=== PATIENT | male | born 1950 | race Caucasian/White ===

== ENCOUNTER 2020-07-02 07:53 | Outpatient (CLI) | payer OTHER ==
[2020-07-02 14:43] LABS: ALBUMIN 4.6 g/dL (3.2-5.5); ALKALINE PHOSPHATASE 53 IU/L (42-121); ALT ALANINE AMINOTRANSFERASE < 10 IU/L (10-60); AST ASPARTATE AMINOTRANSFERASE 24 IU/L (10-42); BILIRUBIN,TOTAL 1.1 mg/dL (0.2-1.0); BUN - BLOOD UREA NITROGEN 23 mg/dL (6-20); CALCIUM 9.5 mg/dL (8.5-10.3); CARBON DIOXIDE - CO2 25 mmol/L (21-32); CHLORIDE 102 mmol/L (101-111); GFR - MDRD 74 (>89); GLUCOSE 170 mg/dL (70-100); POTASSIUM 4.5 mmol/L (3.5-5.0); SODIUM 137 mmol/L (135-145); TOTAL PROTEIN 7.6 g/dL (6.7-8.2)
[2020-07-02 14:44] LABS: ALBUMIN/GLOBULIN RATIO 1.5 (1.0-2.2)
[2020-07-02 14:49] LABS: BASOPHILS # (AUTO) 0.1 10^3/uL (0.0-0.1); BASOPHILS % (AUTO) 0.8 %; EOSINOPHILS # (AUTO) 0.3 10^3/uL (0.0-0.7); EOSINOPHILS % (AUTO) 4.5 %; HCT - HEMATOCRIT 46.2 % (42.0-52.0); HGB - HEMOGLOBIN 14.5 g/dL (14.0-18.0); LYMPHOCYTES % (AUTO) 16.1 %; MEAN CORPUSCULAR HEMOGLOBIN 31.3 pg (27.0-31.0); MEAN CORPUSCULAR HGB CONC 31.4 g/dL (32.0-36.0); MEAN CORPUSCULAR VOLUME 99.6 fL (80.0-94.0); MEAN PLATELET VOLUME 9.4 fL (7.4-11.4); MONOCYTES # (AUTO) 0.4 10^3/uL (0.0-1.0); MONOCYTES % (AUTO) 7.2 %; NEUTROPHILS # (AUTO) 4.2 10^3/uL (1.5-6.6); NEUTROPHILS % (AUTO) 71.1 %; PLT - PLATELET COUNT 263 10^3/uL (130-450); RED BLOOD COUNT 4.64 10^6/uL (4.70-6.10)
[2020-07-02 20:26] LABS: ESTIMATED AVERAGE GLUCOSE 140 mg/dL (70-100); HEMOGLOBIN A1c% 6.5 % (4.27-6.07)
== END 2020-07-02 07:54 | disposition home or self-care (01) ==
LOC: LAB.S 07:53
PROVIDERS: ATTEND Internal Medicine
DX: Z00.00 Encounter for general adult medical examination without abnormal findings (principal); Z12.5 Encounter for screening for malignant neoplasm of prostate; E11.9 Type 2 diabetes mellitus without complications
CPT/HCPCS: 36415; 80053; 83036; 84153; 85025

== ENCOUNTER 2020-10-06 07:32 | Outpatient (CLI) | payer OTHER ==
[2020-10-06 14:25] LABS: BASOPHILS % (AUTO) 0.5 %; EOSINOPHILS # (AUTO) 0.6 10^3/uL (0.0-0.7); EOSINOPHILS % (AUTO) 8.5 %; HCT - HEMATOCRIT 46.3 % (42.0-52.0); HGB - HEMOGLOBIN 14.8 g/dL (14.0-18.0); LYMPHOCYTES # (AUTO) 1.1 10^3/uL (1.5-3.5); LYMPHOCYTES % (AUTO) 16.5 %; MEAN CORPUSCULAR HEMOGLOBIN 31.6 pg (27.0-31.0); MEAN CORPUSCULAR VOLUME 98.7 fL (80.0-94.0); MEAN PLATELET VOLUME 9.4 fL (7.4-11.4); MONOCYTES # (AUTO) 0.5 10^3/uL (0.0-1.0); MONOCYTES % (AUTO) 8.3 %; NEUTROPHILS # (AUTO) 4.3 10^3/uL (1.5-6.6); NEUTROPHILS % (AUTO) 65.9 %; PLT - PLATELET COUNT 245 10^3/uL (130-450); RED BLOOD COUNT 4.69 10^6/uL (4.70-6.10); RED CELL DISTRIBUTION WIDTH 12.4 % (12.0-15.0); WHITE BLOOD COUNT 6.5 x10^3/uL (4.8-10.8)
[2020-10-06 14:35] LABS: ESTIMATED AVERAGE GLUCOSE 146 mg/dL (70-100); HEMOGLOBIN A1c% 6.7 % (4.27-6.07)
[2020-10-06 14:53] LABS: ALBUMIN 4.5 g/dL (3.2-5.5); ALBUMIN/GLOBULIN RATIO 1.6 (1.0-2.2); ALKALINE PHOSPHATASE 59 IU/L (42-121); ALT ALANINE AMINOTRANSFERASE 21 IU/L (10-60); AST ASPARTATE AMINOTRANSFERASE 23 IU/L (10-42); BILIRUBIN,TOTAL 0.8 mg/dL (0.2-1.0); BUN - BLOOD UREA NITROGEN 24 mg/dL (6-20); CALCIUM 9.6 mg/dL (8.5-10.3); CARBON DIOXIDE - CO2 28 mmol/L (21-32); CHLORIDE 103 mmol/L (101-111); CHOL/HDL RATIO 3.8 (<5.0); CHOLESTEROL 123 mg/dL; CREATININE 1.1 mg/dL (0.6-1.2); GFR - MDRD 67 (>89); GLUCOSE 147 mg/dL (70-100); HDL CHOLESTEROL 32 mg/dL; LDL CHOLESTEROL,CALCULATED 68 mg/dL; LDL/HDL RATIO 2.1 (<3.6); POTASSIUM 4.7 mmol/L (3.5-5.0); SODIUM 141 mmol/L (135-145); TOTAL PROTEIN 7.3 g/dL (6.7-8.2); TRIGLYCERIDES 115 mg/dL; VLDL CHOLESTEROL 23 mg/dL
[2020-10-06 15:09] LABS: CREATININE,URINE 102.1 mg/dL; MICROALBUM/CREATININE RATIO,UR 2.9 ug/mg (<30.0); MICROALBUMIN,URINE 0.3 mg/dL (0-300.0)
== END 2020-10-06 07:33 | disposition home or self-care (01) ==
LOC: LAB.S 07:32
PROVIDERS: ATTEND Internal Medicine
DX: E11.9 Type 2 diabetes mellitus without complications (principal)
CPT/HCPCS: 36415; 80053; 80061; 82043; 82570; 83036; 83721; 85025

== ENCOUNTER 2020-11-25 07:30 | Outpatient (CLI) | payer OTHER ==
[2020-11-25 15:01] LABS: INR 1.1 (0.8-1.2)
[2020-11-25 15:09] LABS: PARTIAL THROMBOPLASTIN TIME 29.6 secs (24.9-33.3)
[2020-11-25 15:10] LABS: BASOPHILS % (AUTO) 0.6 %; EOSINOPHILS # (AUTO) 0.3 10^3/uL (0.0-0.7); EOSINOPHILS % (AUTO) 5.2 %; HCT - HEMATOCRIT 46.2 % (42.0-52.0); HGB - HEMOGLOBIN 14.8 g/dL (14.0-18.0); LYMPHOCYTES # (AUTO) 0.9 10^3/uL (1.5-3.5); LYMPHOCYTES % (AUTO) 17.4 %; MEAN CORPUSCULAR HEMOGLOBIN 31.6 pg (27.0-31.0); MEAN CORPUSCULAR VOLUME 98.5 fL (80.0-94.0); MEAN PLATELET VOLUME 9.3 fL (7.4-11.4); MONOCYTES # (AUTO) 0.5 10^3/uL (0.0-1.0); MONOCYTES % (AUTO) 9.9 %; NEUTROPHILS # (AUTO) 3.6 10^3/uL (1.5-6.6); NEUTROPHILS % (AUTO) 66.5 %; PLT - PLATELET COUNT 246 10^3/uL (130-450); RED BLOOD COUNT 4.69 10^6/uL (4.70-6.10); RED CELL DISTRIBUTION WIDTH 12.9 % (12.0-15.0); WHITE BLOOD COUNT 5.4 x10^3/uL (4.8-10.8)
[2020-11-25 15:18] LABS: BILIRUBIN,URINE NEGATIVE (NEGATIVE); GLUCOSE, URINE (UA) NEGATIVE (NEGATIVE); KETONES,URINE (UA) NEGATIVE (NEGATIVE); LEUKOCYTE ESTERASE, URINE NEGATIVE (NEGATIVE); NITRITE,URINE NEGATIVE (NEGATIVE); OCCULT BLOOD,URINE NEGATIVE (NEGATIVE); PROTEIN,URINE NEGATIVE (NEGATIVE); UROBILINOGEN,URINE 0.2 (NORMAL) E.U./dL (NORMAL)
[2020-11-25 15:20] LABS: CLARITY,URINE CLEAR (CLEAR)
[2020-11-25 15:28] LABS: BACTERIA,URINE Rare /HPF (None Seen); RBC,URINE 0-5 /HPF (0-5); SQUAMOUS EPITHELIAL CELL,UR RARE Squamous (<= Few); WBC,URINE 0-3 /HPF (0-3)
[2020-11-25 15:43] LABS: THYROID STIMULATING HORMONE 2.4 uIU/mL (0.34-5.60)
[2020-11-25 15:50] LABS: ALBUMIN 4.3 g/dL (3.2-5.5); ALBUMIN/GLOBULIN RATIO 1.5 (1.0-2.2); ALKALINE PHOSPHATASE 58 IU/L (42-121); ALT ALANINE AMINOTRANSFERASE < 10 IU/L (10-60); AST ASPARTATE AMINOTRANSFERASE 24 IU/L (10-42); BILIRUBIN,TOTAL 0.8 mg/dL (0.2-1.0); BUN - BLOOD UREA NITROGEN 20 mg/dL (6-20); CALCIUM 9.5 mg/dL (8.5-10.3); CARBON DIOXIDE - CO2 28 mmol/L (21-32); CHLORIDE 102 mmol/L (101-111); CHOL/HDL RATIO 5.6 (<5.0); CHOLESTEROL 178 mg/dL; CREATININE 1.1 mg/dL (0.6-1.2); GFR - MDRD 66 (>89); GLUCOSE 183 mg/dL (70-100); HDL CHOLESTEROL 32 mg/dL; LDL CHOLESTEROL,CALCULATED 112 mg/dL; LDL/HDL RATIO 3.5 (<3.6); POTASSIUM 4.3 mmol/L (3.5-5.0); SODIUM 139 mmol/L (135-145); TOTAL PROTEIN 7.1 g/dL (6.7-8.2); TRIGLYCERIDES 168 mg/dL; VLDL CHOLESTEROL 34 mg/dL
== END 2020-11-25 07:31 | disposition home or self-care (01) ==
LOC: LAB.S 07:30
PROVIDERS: ATTEND Registered Nurse
DX: Z01.812 Encounter for preprocedural laboratory examination (principal)
CPT/HCPCS: 36415; 80053; 80061; 81001; 83721; 84443; 85025; 85610; 85730

== ENCOUNTER 2020-11-30 15:59 | Outpatient (CLI) | payer OTHER | END 2020-11-30 16:00 | disposition home or self-care (01) | LOC: COV 15:59 | PROVIDERS: ATTEND Student in an Organized Health Care Education/Training Program | DX: Z01.812 Encounter for preprocedural laboratory examination (principal); M48.062 Spinal stenosis, lumbar region with neurogenic claudication; M54.16 Radiculopathy, lumbar region; Z20.822 Contact with and (suspected) exposure to COVID-19 ==

== ENCOUNTER 2021-08-12 07:37 | Outpatient (CLI) | payer OTHER ==
[2021-08-12 14:31] LABS: ALBUMIN 4.9 g/dL (3.2-5.5); ALBUMIN/GLOBULIN RATIO 1.4 (1.0-2.2); ALKALINE PHOSPHATASE 59 IU/L (42-121); ALT ALANINE AMINOTRANSFERASE < 10 IU/L (10-60); AST ASPARTATE AMINOTRANSFERASE 21 IU/L (10-42); BILIRUBIN,TOTAL 1.2 mg/dL (0.2-1.0); BUN - BLOOD UREA NITROGEN 30 mg/dL (6-20); CALCIUM 10.1 mg/dL (8.5-10.3); CARBON DIOXIDE - CO2 28 mmol/L (21-32); CHLORIDE 100 mmol/L (101-111); CREATININE 1.1 mg/dL (0.6-1.2); GFR - MDRD 66 (>89); GLUCOSE 135 mg/dL (70-100); POTASSIUM 4.7 mmol/L (3.5-5.0); SODIUM 137 mmol/L (135-145); TOTAL PROTEIN 8.3 g/dL (6.7-8.2)
[2021-08-12 15:33] LABS: CREATININE,URINE 136.3 mg/dL; MICROALBUM/CREATININE RATIO,UR 4.4 ug/mg (<30.0); MICROALBUMIN,URINE 0.6 mg/dL (0-300.0)
[2021-08-12 20:19] LABS: ESTIMATED AVERAGE GLUCOSE 146 mg/dL (70-100); HEMOGLOBIN A1c% 6.7 % (4.27-6.07)
== END 2021-08-12 07:38 | disposition home or self-care (01) ==
LOC: LAB.S 07:37
PROVIDERS: ATTEND Registered Nurse
DX: E11.9 Type 2 diabetes mellitus without complications (principal)
CPT/HCPCS: 36415; 80053; 82043; 82570; 83036

== ENCOUNTER 2021-12-02 07:52 | Outpatient (CLI) | payer OTHER | END 2021-12-02 07:53 | disposition critical access hospital (66) | LOC: EMS 07:52 | DX: R44.0 Auditory hallucinations (principal); R44.1 Visual hallucinations | CPT/HCPCS: A0425; A0429 ==

== ENCOUNTER 2021-12-02 08:32 | Emergency (ER) | payer OTHER ==
[2021-12-02 08:42] VITALS: BP 121/78
[2021-12-02 09:08] LABS: BASOPHILS % (AUTO) 0.3 %; EOSINOPHILS # (AUTO) 0.2 10^3/uL (0.0-0.7); EOSINOPHILS % (AUTO) 2.4 %; HCT - HEMATOCRIT 42.7 % (42.0-52.0); LYMPHOCYTES % (AUTO) 15.9 %; MEAN CORPUSCULAR HEMOGLOBIN 31.9 pg (27.0-31.0); MEAN CORPUSCULAR HGB CONC 32.8 g/dL (32.0-36.0); MEAN CORPUSCULAR VOLUME 97.3 fL (80.0-94.0); MEAN PLATELET VOLUME 8.7 fL (7.4-11.4); MONOCYTES # (AUTO) 0.6 10^3/uL (0.0-1.0); MONOCYTES % (AUTO) 8.8 %; NEUTROPHILS # (AUTO) 4.6 10^3/uL (1.5-6.6); NEUTROPHILS % (AUTO) 72.3 %; PLT - PLATELET COUNT 220 10^3/uL (130-450); RED BLOOD COUNT 4.39 10^6/uL (4.70-6.10); RED CELL DISTRIBUTION WIDTH 12.6 % (12.0-15.0); WHITE BLOOD COUNT 6.3 x10^3/uL (4.8-10.8)
[2021-12-02 09:21] LABS: ALBUMIN 4.2 g/dL (3.2-5.5); ALBUMIN/GLOBULIN RATIO 1.6 (1.0-2.2); ALKALINE PHOSPHATASE 50 IU/L (42-121); ALT ALANINE AMINOTRANSFERASE < 10 IU/L (10-60); AST ASPARTATE AMINOTRANSFERASE 20 IU/L (10-42); BILIRUBIN,TOTAL 0.6 mg/dL (0.2-1.0); BUN - BLOOD UREA NITROGEN 22 mg/dL (6-20); CALCIUM 9.4 mg/dL (8.5-10.3); CARBON DIOXIDE - CO2 25 mmol/L (21-32); CHLORIDE 102 mmol/L (101-111); CREATININE 0.9 mg/dL (0.6-1.2); ETOH - ETHANOL < 5.0 mg/dL; GFR - MDRD 83 (>89); GLUCOSE 131 mg/dL (70-100); LIPASE 30 U/L (22-51); POTASSIUM 4.3 mmol/L (3.5-5.0); SODIUM 137 mmol/L (135-145); TOTAL PROTEIN 6.9 g/dL (6.7-8.2)
[2021-12-02] MEDS ORDERED: SODIUM CHLORIDE 0.9% 1,000 ML IV STA (09:34)
[2021-12-02] MEDS ORDERED: KETOROLAC 30 MG/ML VIAL IVP STA (09:34)
[2021-12-02] MEDS ORDERED: DEXAMETHASONE 10 MG/ML VIAL IVP STA (09:34)
[2021-12-02 10:15] LABS: MUDS CUTOFF CONCENTRATIONS CUTOFF CONC BELOW:
[2021-12-02 10:17] LABS: BILIRUBIN,URINE NEGATIVE (NEGATIVE); GLUCOSE, URINE (UA) NEGATIVE (NEGATIVE); KETONES,URINE (UA) TRACE mg/dL (NEGATIVE); LEUKOCYTE ESTERASE, URINE NEGATIVE (NEGATIVE); NITRITE,URINE NEGATIVE (NEGATIVE); OCCULT BLOOD,URINE NEGATIVE (NEGATIVE); PROTEIN,URINE NEGATIVE (NEGATIVE); UROBILINOGEN,URINE 0.2 (NORMAL) E.U./dL (NORMAL)
[2021-12-02 10:25] LABS: CLARITY,URINE CLEAR (CLEAR)
[2021-12-02 10:33] LABS: AMPHETAMINE SCREEN,URINE NEGATIVE (NEGATIVE); BARBITURATE SCREEN,UR NEGATIVE (NEGATIVE); BENZODIAZEPINES SCREEN, URINE NEGATIVE (NEGATIVE); COCAINE SCREEN URINE NEGATIVE (NEGATIVE); METHADONE SCREEN, URINE NEGATIVE (NEGATIVE); METHAMPHETAMINES SCREEN, URINE NEGATIVE (NEGATIVE); OPIATE SCREEN, URINE NEGATIVE (NEGATIVE); OXYCODONE SCREEN, URINE NEGATIVE (NEGATIVE); PROPOXYPHENE SCREEN, URINE NEGATIVE (NEGATIVE); THC CANNABINOID SCREEN, URINE NEGATIVE (NEGATIVE); TRICYCLIC ANTIDEPRESSANT,URINE NEGATIVE (NEGATIVE)
--- NOTE | 2021-12-02 12:07 | ED Physician Documentation ---
History of Present Illness - Stated complaint Stated Complaint: MHE - Chief complaint Chief Complaint: MHE - History obtained from History obtained from: Patient, Family () - History of Present Illness Timing: Today Review of Systems Constitutional: denies: Fever Ears: denies: Ear pain Nose: denies: Congestion Throat: denies: Sore throat Cardiac: denies: Chest pain / pressure, Palpitations Respiratory: denies: Dyspnea, Cough GI: reports: Nausea. denies: Abdominal Pain, Vomiting : denies: Dysuria, Frequency Skin: denies: Rash Musculoskeletal: reports: Extremity pain, Other (spasming of the legs and back). denies: Neck pain, Back pain, Extremity swelling Neurologic: reports: Altered mental status (seening things.). denies: Generalized weakness, Focal weakness, Numbness Psychiatric: reports: Hallucinations. denies: Depressed, Suicidal, Homicidal PD PAST MEDICAL HISTORY - Past Medical History Past Medical History: Yes Cardiovascular: Hypertension, High cholesterol Respiratory: None Neuro: Parkinson's, Peripheral neuropathy Endocrine/Autoimmune: Type 2 diabetes GI: None : None Psych: None Musculoskeletal: None Derm: None - Past Surgical History Past Surgical History: No - Present Medications Home Medications: Ambulatory Orders Medication Instructions Recorded Confirmed Carbidopa/Levodopa [Carbidopa-Levo DAILY PM 09/25/19 ER 25-100 Tab] Carbidopa/Levodopa/Entacapone 1 each PO Q6HR 09/25/19 09/25/19 [Carbidopa-Levodopa 100 mg-Enta] Ibuprofen [Motrin] 600 mg PO Q6H PRN #30 tab 09/25/19 Selegiline HCl 5 mg PO BID 09/25/19 09/25/19 Simvastatin 09/25/19 09/25/19 lisinopriL [Prinivil] 10 mg PO 09/25/19 metFORMIN [Glucophage] 09/25/19 Gabapentin 100 mg PO QPM #20 capsule 10/01/19 Lidocaine Patch 5% [Lidoderm Patch] 1 patch TOP DAILY PRN #10 patch 10/01/19 oxyCODONE [Roxicodone] 5 mg PO Q8H PRN #20 tablet 10/01/19 - Allergies Allergies/Adverse Reactions: Allergies Allergy/AdvReac Type Severity Reaction Status Date / Time Penicillins Allergy Unknown Verified 09/25/19 12:24 - Social History Does the pt smoke?: No Smoking Status: Never smoker Does the pt drink ETOH?: No Does the pt have substance abuse?: No - Immunizations Immunizations are current?: Yes - POLST Patient has POLST: No PD ED PE NORMAL - Vitals Vital signs reviewed: Yes - General General: No acute distress, Well developed/nourished, Other (The patient is alert but has a 2 to 3-second delay in execution of motor commands and a 2- second speech latency.) - HEENT HEENT: Atraumatic, PERRL, EOMI - Neck Neck: Supple, no meningeal sign, No bony TTP - Cardiac Cardiac: RRR, No murmur - Respiratory Respiratory: No respiratory distress, Clear bilaterally - Abdomen Abdomen: Soft, Non tender - Back Back: No CVA TTP, No spinal TTP - Derm Derm: Normal color, Warm and dry, No rash - Extremities Extremities: No deformity, No edema - Neuro Neuro: oval or circular glass cutter 2-12 intact, No motor deficit, No sensory deficit, Other (speech latency present) Eye Opening: Spontaneous Motor: Obeys Commands Verbal: Oriented GCS Score: 15 - Psych Psych: Normal mood, Normal affect Results - Vitals Vitals: Vital Signs - 24 hr 12/02/21 08:39 Temperature 36.6 C Heart Rate 94 Respiratory 16 Rate Blood Pressure 121/78 O2 Saturation 94 Oxygen O2 Source Room air - Labs Labs: Laboratory Tests 12/02/21 12/02/21 12/02/21 09:00 09:00 09:00 WBC 6.3 RBC 4.39 L Hgb 14.0 Hct 42.7 MCV 97.3 H MCH 31.9 H MCHC 32.8 RDW 12.6 Plt Count 220 MPV 8.7 Neut # (Auto) 4.6 Lymph # (Auto) 1.0 L Nicholas # (Auto) 0.6 Eos # (Auto) 0.2 Baso # (Auto) 0.0 Absolute Nucleated RBC 0.00 Nucleated RBC % 0.0 Sodium 137 Potassium 4.3 Chloride 102 Carbon Dioxide 25 Anion Gap 10.0 BUN 22 H Creatinine 0.9 Estimated GFR (MDRD) 83 L Glucose 131 H Calcium 9.4 Total Bilirubin 0.6 AST 20 ALT < 10 L Alkaline Phosphatase 50 Total Protein 6.9 Albumin 4.2 Globulin 2.7 Albumin/Globulin Ratio 1.6 Lipase 30 TSH 1.83 Urine Color Urine Clarity Urine pH Ur Specific [place] Urine Protein Urine Glucose (UA) Urine Ketones Urine Occult Blood Urine Nitrite Urine Bilirubin Urine Urobilinogen Ur Leukocyte Esterase Ur Microscopic Review Urine Culture Comments Urine Opiates Screen Ur Oxycodone Screen Urine Methadone Screen Ur Propoxyphene Screen Ur Barbiturates Screen Ur Tricyclics Screen Ur Phencyclidine Scrn Ur Amphetamine Screen U Methamphetamines Scrn U Benzodiazepines Scrn Urine Cocaine Screen U Cannabinoids Screen Ethyl Alcohol < 5.0 12/02/21 10:08 WBC RBC Hgb Hct MCV MCH MCHC RDW Plt Count MPV Neut # (Auto) Lymph # (Auto) Nicholas # (Auto) Eos # (Auto) Baso # (Auto) Absolute Nucleated RBC Nucleated RBC % Sodium Potassium Chloride Carbon Dioxide Anion Gap BUN Creatinine Estimated GFR (MDRD) Glucose Calcium Total Bilirubin AST ALT Alkaline Phosphatase Total Protein Albumin Globulin Albumin/Globulin Ratio Lipase TSH Urine Color YELLOW Urine Clarity CLEAR Urine pH 7.0 Ur Specific [place] 1.015 Urine Protein NEGATIVE Urine Glucose (UA) NEGATIVE Urine Ketones TRACE Urine Occult Blood NEGATIVE Urine Nitrite NEGATIVE Urine Bilirubin NEGATIVE Urine Urobilinogen 0.2 (NORMAL) Ur Leukocyte Esterase NEGATIVE Ur Microscopic Review NOT INDICATED Urine Culture Comments NOT INDICATED Urine Opiates Screen NEGATIVE Ur Oxycodone Screen NEGATIVE Urine Methadone Screen NEGATIVE Ur Propoxyphene Screen NEGATIVE Ur Barbiturates Screen NEGATIVE Ur Tricyclics Screen NEGATIVE Ur Phencyclidine Scrn NEGATIVE Ur Amphetamine Screen NEGATIVE U Methamphetamines Scrn NEGATIVE U Benzodiazepines Scrn NEGATIVE Urine Cocaine Screen NEGATIVE U Cannabinoids Screen NEGATIVE Ethyl Alcohol Procedures - IVC sono (time) 09 Bedside IVC sono: IVC measures (cm) (0.74), IVC collapsed c insp (cm) (complete), Significant dehydration (est 2-3 liter deficit) PD MEDICAL DECISION MAKING - ED course Complexity details: reviewed old records, reviewed results, re-evaluated patient, considered differential, d/w patient, d/w family () ED course: 71-year-old male with a history of Parkinson's and early dementia has developed hallucinations which he has had previously periodically. Today he is asked for mental health evaluation for his hallucinations. He called the ambulance when his was not home. He had significant problems with spasms in his legs and back and radiation of the pain down his right side consistent with a sciatica he has had previously. Here in the emergency department we started hydration and the patient began to feel improved. We did treat the sciatica as well with dexamethasone and Toradol. At the conclusion of treatment the patient's hallucinations were not present. I did discuss with the the potential for evaluation with telepsych and the likelihood that this is related to his Parkinson's medication and the recent illness and this would likely improve. She declined telepsych evaluation this morning. Departure - Departure Disposition: 01 Home, Self Care Clinical Impression: Low back pain of thoracolumbar region with sciatica, Dehydration Condition: Stable Instructions: ED Dehydration, ED Sciatica Follow-Up: Lisbeth Alvarez ARNP [Primary Care Provider] - MARCIANO RALPH MD [Physician No Access] - Comments: Rajinder, today it looks like you are sciatica has been treated successfully and we did find that you are significantly dehydrated. I suspect this is contributed to the increase in hallucinations you have had and the hallucinations are likely related to your Parkinson's medication. If you continue to have significant problems with your hallucinations a visit to Dr. Ralph is indicated. The recommendation for fluid intake is 2 quarts per day. Discharge Date/Time: 12/02/21 13:10
== END 2021-12-02 13:10 | disposition home or self-care (01) ==
LOC: EDUNIT# → ED 08:32
DX: G20 Parkinson's disease (principal); M54.40 Lumbago with sciatica, unspecified side; E86.0 Dehydration; R44.1 Visual hallucinations; E11.42 Type 2 diabetes mellitus with diabetic polyneuropathy; Z79.84 Long term (current) use of oral hypoglycemic drugs; I10 Essential (primary) hypertension
CPT/HCPCS: 36415; 80053; 80306; 80320; 81001; 81003; 83690; 84443; 85025; 87086; 96374; 96375; 99284

== ENCOUNTER → 2022-01-31 | Outpatient (CLI) | payer OTHER | END | disposition EMS.NT | LOC: EMS 12:19 | DX: Z03.89 Encounter for observation for other suspected diseases and conditions ruled out (principal) ==

== ENCOUNTER 2022-02-01 12:28 | Emergency (ER) | payer OTHER ==
[2022-02-01 13:03] LABS: BASOPHILS % (AUTO) 0.4 %; EOSINOPHILS # (AUTO) 0.3 10^3/uL (0.0-0.7); EOSINOPHILS % (AUTO) 3.3 %; HCT - HEMATOCRIT 45.5 % (42.0-52.0); HGB - HEMOGLOBIN 14.9 g/dL (14.0-18.0); LYMPHOCYTES # (AUTO) 0.9 10^3/uL (1.5-3.5); LYMPHOCYTES % (AUTO) 11.6 %; MEAN CORPUSCULAR HEMOGLOBIN 31.9 pg (27.0-31.0); MEAN CORPUSCULAR HGB CONC 32.7 g/dL (32.0-36.0); MEAN CORPUSCULAR VOLUME 97.4 fL (80.0-94.0); MEAN PLATELET VOLUME 8.6 fL (7.4-11.4); MONOCYTES # (AUTO) 0.6 10^3/uL (0.0-1.0); MONOCYTES % (AUTO) 6.9 %; NEUTROPHILS # (AUTO) 6.3 10^3/uL (1.5-6.6); NEUTROPHILS % (AUTO) 77.4 %; PLT - PLATELET COUNT 253 10^3/uL (130-450); RED BLOOD COUNT 4.67 10^6/uL (4.70-6.10); RED CELL DISTRIBUTION WIDTH 12.5 % (12.0-15.0); WHITE BLOOD COUNT 8.1 x10^3/uL (4.8-10.8)
[2022-02-01 13:25] LABS: ACETAMINOPHEN < 10 ug/mL (10-30); ALBUMIN 4.2 g/dL (3.2-5.5); ALBUMIN/GLOBULIN RATIO 1.6 (1.0-2.2); ALKALINE PHOSPHATASE 55 IU/L (42-121); ALT ALANINE AMINOTRANSFERASE < 10 IU/L (10-60); AST ASPARTATE AMINOTRANSFERASE 18 IU/L (10-42); BUN - BLOOD UREA NITROGEN 22 mg/dL (6-20); CALCIUM 9.3 mg/dL (8.5-10.3); CARBON DIOXIDE - CO2 25 mmol/L (21-32); CHLORIDE 98 mmol/L (101-111); CREATININE 0.8 mg/dL (0.6-1.2); ETOH - ETHANOL < 5.0 mg/dL; GFR - MDRD 96 (>89); GLUCOSE 159 mg/dL (70-100); LIPASE 28 U/L (22-51); POTASSIUM 4.1 mmol/L (3.5-5.0); SALICYLATE < 6.0 mg/dL; SODIUM 133 mmol/L (135-145); TOTAL PROTEIN 6.9 g/dL (6.7-8.2)
[2022-02-01] MEDS ORDERED: CARBIDOPA/LEVODOPA 25 MG/100 MG TABLET PO SCH (14:00)
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
[2022-02-01 14:16] LABS: B. PARAPERTUSSIS- RESP PCR PAN NOT DETECTED; B. PERTUSSIS- RESP PCR PANEL NOT DETECTED; C. PNEUMONIAE- RESP PCR PANEL NOT DETECTED; CORONAVIRUS 229E-RESP PCR NOT DETECTED; CORONAVIRUS HKU1-RESP PCR NOT DETECTED; CORONAVIRUS NL63-RESP PCR NOT DETECTED; CORONAVIRUS OC43-RESP PCR NOT DETECTED; HUMAN METAPNEUMOVIRUS NOT DETECTED; INFLUENZA A- RESP PCR PANEL NOT DETECTED; INFLUENZA B - RESP PCR PANEL NOT DETECTED; M. PNEUMONIAE- RESP PCR PANEL NOT DETECTED; PARAINFLUENZA VIRUS 1 NOT DETECTED; PARAINFLUENZA VIRUS 2 NOT DETECTED; PARAINFLUENZA VIRUS 3 NOT DETECTED; PARAINFLUENZA VIRUS 4 NOT DETECTED; RHINOVIRUS/ENTEROVIRUS NOT DETECTED; RSV- RESP PCR PANEL NOT DETECTED; SARS-CoV-2 -RESP PCR PANEL NOT DETECTED
[2022-02-01 15:01] LABS: MUDS CUTOFF CONCENTRATIONS CUTOFF CONC BELOW:
[2022-02-01 15:12] LABS: BILIRUBIN,URINE NEGATIVE (NEGATIVE); GLUCOSE, URINE (UA) NEGATIVE (NEGATIVE); KETONES,URINE (UA) TRACE mg/dL (NEGATIVE); LEUKOCYTE ESTERASE, URINE NEGATIVE (NEGATIVE); NITRITE,URINE NEGATIVE (NEGATIVE); OCCULT BLOOD,URINE NEGATIVE (NEGATIVE); PROTEIN,URINE NEGATIVE (NEGATIVE); UROBILINOGEN,URINE 0.2 (NORMAL) E.U./dL (NORMAL)
[2022-02-01 15:16] LABS: CLARITY,URINE CLEAR (CLEAR)
[2022-02-01 15:28] LABS: AMPHETAMINE SCREEN,URINE NEGATIVE (NEGATIVE); BARBITURATE SCREEN,UR NEGATIVE (NEGATIVE); BENZODIAZEPINES SCREEN, URINE NEGATIVE (NEGATIVE); COCAINE SCREEN URINE NEGATIVE (NEGATIVE); METHADONE SCREEN, URINE NEGATIVE (NEGATIVE); METHAMPHETAMINES SCREEN, URINE NEGATIVE (NEGATIVE); OPIATE SCREEN, URINE NEGATIVE (NEGATIVE); OXYCODONE SCREEN, URINE NEGATIVE (NEGATIVE); PROPOXYPHENE SCREEN, URINE NEGATIVE (NEGATIVE); THC CANNABINOID SCREEN, URINE NEGATIVE (NEGATIVE); TRICYCLIC ANTIDEPRESSANT,URINE NEGATIVE (NEGATIVE)
--- NOTE | 2022-02-01 15:37 | XRAY Report ---
PROCEDURE: Chest 1 View X-Ray INDICATIONS: weak TECHNIQUE: One view of the chest was acquired. COMPARISON: Same day right shoulder radiograph. FINDINGS: Suboptimal examination. Suspect density external to the patient at the left chest wall. Surgical changes and devices: None. Lungs and pleura: No pleural effusions or pneumothorax. Lungs are clear. Mediastinum: Mediastinal contours appear normal. Heart size is normal. Bones and chest wall: No suspicious bony lesions. Overlying soft tissues appear unremarkable. IMPRESSION: Limited examination due to positioning and possible external object at the left chest. Density at the left chest. This could represent an external object. It is difficult to exclude underl rossana airspace opacity. When clinically feasible, repeat or 2 view chest radiograph would be helpful for further evaluation. CT of the chest could also be considered for further evaluation. Reviewed by: Martinez Quiñones MD on 02/01/2022 3:35 PM [facility] Approved by: Martinez Quiñones MD on 02/01/2022 3:35 PM [facility] Station ID: [id number]
--- NOTE | 2022-02-01 15:38 | XRAY Report ---
PROCEDURE: Shoulder 3 View RT INDICATIONS: fall/pain TECHNIQUE: 3 views of the shoulder were acquired. COMPARISON: Same day CXR. FINDINGS: Bones: No fractures or dislocations. Moderate degenerative change at the right shoulder. No suspici ous bony lesions. Visualized ribs appear intact. Soft tissues: No suspicious soft tissue calcifications. IMPRESSION: Moderate right shoulder DJD. Reviewed by: Martinez Quiñones MD on 02/01/2022 3:37 PM PST Approved by: Martinez Quiñones MD on 02/01/2022 3:37 PM PST Station ID: [id number]
--- NOTE | 2022-02-01 15:42 | CT Report ---
PROCEDURE: HEAD WO INDICATIONS: fall TECHNIQUE: Noncontrast 4.5 mm thick angled axial sections acquired from the foramen magnum to the vertex. For r adiation dose reduction, the following was used: automated exposure control, adjustment of mA and/or kV according to patient size. COMPARISON: None. FINDINGS: Image quality: Excellent. Repeat image acquisition. CSF spaces: Basal cisterns are patent. No extra-axial fluid collections. Ventricles are normal in size and shape. Brain: No midline shift. No intracranial masses or hemorrhage. Cartwright-white matter interface is norm al. Skull and face: Calvarium and visualized facial bones are intact, without suspicious lesions. Sinuses: Visualized sinuses and mastoids are clear. IMPRESSION: No acute intracranial abnormality. Reviewed by: Martinez Quiñones MD on 02/01/2022 3:40 PM [facility] Approved by: Martinez Quiñones MD on 02/01/2022 3:40 PM [facility] Station ID: [id number]
[2022-02-01] MEDS: CARBIDOPA/LEVODOPA 10 MG/100 MG TABLET PO SCH ×2 (16:50→19:51)
[2022-02-01] MEDS: CARBIDOPA/LEVODOPA 25 MG/100 MG TABLET PO SCH ×2 (18:29→22:30)
[2022-02-01] MEDS: metFORMIN 500 MG TABLET PO SCH (22:30)
[2022-02-01] MEDS ORDERED: MORPHINE 2 MG/ML CARPUJECT IVP STA (23:13)
[2022-02-01] MEDS ORDERED: KETOROLAC 15 MG/ML VIAL IM STA (23:17)
[2022-02-02] MEDS: CARBIDOPA/LEVODOPA 25 MG/100 MG TABLET PO SCH ×6 (01:53→23:20)
[2022-02-02] MEDS: CARBIDOPA/LEVODOPA 10 MG/100 MG TABLET PO SCH ×6 (04:27→23:20)
--- NOTE | 2022-02-02 07:22 | ED Physician Documentation ---
ED Addendum - Addendum Addendum: 02/02/22 07:21 DIANE. Patient endorsed to incoming daytime ED MD at 7am shift change.
[2022-02-02] MEDS: metFORMIN 500 MG TABLET PO SCH ×2 (09:12→23:20)
--- NOTE | 2022-02-02 10:07 | ED Physician Documentation ---
ED Addendum - Addendum Addendum: 02/02/22 10:06 No reported behavioral abnormalities overnight by nursing staff. He apparently rested reasonably well. He is on his usual daily medicines. Basic labs were okay. Verbal report on signout was telepsych consult has been ordered. I reviewed the orders and there is the phone consult order but not the telepsych set up order. I wonder if it may be did not get called in. Our TACK WELDER today will check into it. Hopefully just oversight on it and we can get this done later this morning. Social work will contact his . Most commonly we are able to add in some medications to help with behavioral aspects as long as there is no other illness or medical condition provoking it and the patient's do fairly well.
--- NOTE | 2022-02-02 13:42 | ED Physician Documentation ---
ED Addendum - Addendum Addendum: 02/02/22 13:39 There was some misdirection of the telepsych report. Apparently was not entered by psychiatry into [employer] last night. Without it had not been done as yet. However through the morning today we did contact the abdomen found that it had been done and they faxed the report to us. The report does outline the patient's condition. The median just of the therapy was to be supportive. The pharmacologic recommendation portion is actually left blank unfortunately. It had been done last evening and so the provider would not be available at this time. Social work talked with the patient's . He has been doing okay here without any agitation. The seemed reluctant to bring him home but understanding that placement is a longer-term issue. They had been looking into getting him into a dementia unit. They will continue that pursuit. At this point I can offer the patient and his a low-dose medication. I would choose one commonly used in other patients we have seen of similar condition. I would try Seroquel 25 mg at night daily to begin with and see how that does. This is typically preferable over low-dose haloperidol though might be able to be used in conjunction if need be. They follow-up with their primary care to adjust medications as needed. Disposition: Discharged from the department in stable Diagnoses Parkinson's disorder 2. Dementia with some agitated behavior
[2022-02-02] MEDS ORDERED: QUEtiapine 25 MG TABLET PO STA (15:47)
[2022-02-02] MEDS ORDERED: LORazepam 2 MG/ML VIAL IM STA (16:08)
--- NOTE | 2022-02-02 16:45 | ED Physician Documentation ---
ED Addendum - Addendum Addendum: 02/02/22 16:45 Signed out to me by Dr. Clifton at 3 PM shift change. He has been hard to redirect at times, I had ordered 50 mg of Seroquel for his psychosis. He spit it out. He did need something for anxiety and wandering, he was given 1 mg of Ativan IM, this was not chemical restraint, it was for anxiety. Subsequently he was a little more agitated and required soft restraints.
[2022-02-02] MEDS ORDERED: QUEtiapine 25 MG TABLET PO SCH (21:00)
[2022-02-03] MEDS ORDERED: LORazepam 2 MG/ML VIAL IM STA ×2 (00:53→11:50)
[2022-02-03] MEDS: CARBIDOPA/LEVODOPA 10 MG/100 MG TABLET PO SCH ×4 (00:53→12:22)
--- NOTE | 2022-02-03 00:54 | ED Physician Documentation ---
ED Addendum - Addendum Addendum: 02/03/22 00:54 Patient received 1mg IM ativan for anxiety and as sleep aid. He received ativan earlier in evening to good effect and is now resting comfortably in bed after 2nd dose. Again, this medication was given not as a chemical restraint but for anxiolysis and as sleep aid. Soft restraints temporarily applied to be removed momentarily. 02/03/22 01:10
[2022-02-03] MEDS: CARBIDOPA/LEVODOPA 25 MG/100 MG TABLET PO SCH ×3 (02:31→11:24)
[2022-02-03] MEDS ORDERED: LORazepam 2 MG/ML VIAL IM PRN (02:35)
[2022-02-03 06:20] VITALS: BP 101/58
[2022-02-03] MEDS ORDERED: QUEtiapine 25 MG TABLET PO SCH (09:00)
[2022-02-03] MEDS: metFORMIN 500 MG TABLET PO SCH (09:56)
--- NOTE | 2022-02-03 14:39 | ED Physician Documentation ---
ED Addendum - Addendum Addendum: 02/03/22 14:36 The patient was signed out to me at change of shift, pending improvement in agitation and evaluation by social work. The patient had received Ativan overnight After having a couple of episodes of agitation. The patient responded very well to this and was much more cooperative. Attempts were made by social work to get the [facility], but none were available. The patient had responded so well to the Ativan that we did discuss with the patient's that an option would be to take him home, particularly since we cannot do extended boarding in the emergency department, and We have been able to get him stabilized. The was agreeable to this plan at this point in time. We have prescribed Seroquel and Ativan for the patient. is advised to work with the patient's primary doctor's office to, as well as his 3 social workers, to help arrange a different living situation if she feels that she cannot handle him at home anymore.
== END 2022-02-03 13:54 | disposition home or self-care (01) ==
LOC: EDUNIT# → ED 12:28
DX: G20 Parkinson's disease (principal); F02.811 Dementia in other diseases classified elsewhere, unspecified severity, with agitation; F41.9 Anxiety disorder, unspecified
CPT/HCPCS: 36415; 80053; 80306; 80307; 80320; 80329; 81001; 81003; 83690; 84443; 85025; 87086; 87633; 90834; 93005; 96374; 99285

== ENCOUNTER → 2022-02-01 | Outpatient (CLI) | payer OTHER | END | disposition critical access hospital (66) | LOC: EMS 11:48 | DX: R45.6 Violent behavior (principal); R41.0 Disorientation, unspecified | CPT/HCPCS: A0425; A0429 ==

== ENCOUNTER 2022-02-03 16:37 | Emergency (ER) | payer OTHER ==
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
[2022-02-03 16:59] LABS: BASOPHILS # (AUTO) 0.1 10^3/uL (0.0-0.1); BASOPHILS % (AUTO) 0.5 %; EOSINOPHILS # (AUTO) 0.3 10^3/uL (0.0-0.7); EOSINOPHILS % (AUTO) 2.6 %; HCT - HEMATOCRIT 52.2 % (42.0-52.0); HGB - HEMOGLOBIN 16.5 g/dL (14.0-18.0); LYMPHOCYTES # (AUTO) 1.1 10^3/uL (1.5-3.5); LYMPHOCYTES % (AUTO) 10.4 %; MEAN CORPUSCULAR HEMOGLOBIN 31.8 pg (27.0-31.0); MEAN CORPUSCULAR HGB CONC 31.6 g/dL (32.0-36.0); MEAN CORPUSCULAR VOLUME 100.6 fL (80.0-94.0); MEAN PLATELET VOLUME 8.8 fL (7.4-11.4); MONOCYTES # (AUTO) 0.9 10^3/uL (0.0-1.0); MONOCYTES % (AUTO) 8.4 %; NEUTROPHILS # (AUTO) 7.9 10^3/uL (1.5-6.6); NEUTROPHILS % (AUTO) 77.9 %; PLT - PLATELET COUNT 240 10^3/uL (130-450); RED BLOOD COUNT 5.19 10^6/uL (4.70-6.10); RED CELL DISTRIBUTION WIDTH 12.6 % (12.0-15.0); WHITE BLOOD COUNT 10.1 x10^3/uL (4.8-10.8)
[2022-02-03 17:14] LABS: ACETAMINOPHEN < 10 ug/mL (10-30); ALBUMIN 4.2 g/dL (3.2-5.5); ALBUMIN/GLOBULIN RATIO 1.3 (1.0-2.2); ALKALINE PHOSPHATASE 66 IU/L (42-121); ALT ALANINE AMINOTRANSFERASE 13 IU/L (10-60); AST ASPARTATE AMINOTRANSFERASE 26 IU/L (10-42); BILIRUBIN,TOTAL 1.3 mg/dL (0.2-1.0); BUN - BLOOD UREA NITROGEN 19 mg/dL (6-20); CALCIUM 9.6 mg/dL (8.5-10.3); CARBON DIOXIDE - CO2 27 mmol/L (21-32); CHLORIDE 100 mmol/L (101-111); CREATININE 0.9 mg/dL (0.6-1.2); ETOH - ETHANOL < 5.0 mg/dL; GFR - MDRD 83 (>89); GLUCOSE 135 mg/dL (70-100); LIPASE 25 U/L (22-51); POTASSIUM 4.8 mmol/L (3.5-5.0); SALICYLATE < 6.0 mg/dL; SODIUM 138 mmol/L (135-145); TOTAL PROTEIN 7.5 g/dL (6.7-8.2)
[2022-02-03] MEDS: CARBIDOPA/LEVODOPA 25 MG/100 MG TABLET PO SCH ×2 (17:18→20:17)
[2022-02-03 17:56] LABS: MUDS CUTOFF CONCENTRATIONS CUTOFF CONC BELOW:
[2022-02-03 17:59] LABS: BILIRUBIN,URINE NEGATIVE (NEGATIVE); GLUCOSE, URINE (UA) NEGATIVE (NEGATIVE); KETONES,URINE (UA) 15 mg/dL (NEGATIVE); LEUKOCYTE ESTERASE, URINE NEGATIVE (NEGATIVE); NITRITE,URINE NEGATIVE (NEGATIVE); OCCULT BLOOD,URINE NEGATIVE (NEGATIVE); PH,URINE 6.5 PH (5.0-7.5); PROTEIN,URINE NEGATIVE (NEGATIVE); UROBILINOGEN,URINE 0.2 (NORMAL) E.U./dL (NORMAL)
[2022-02-03 18:04] LABS: CLARITY,URINE CLEAR (CLEAR)
[2022-02-03 18:12] LABS: AMPHETAMINE SCREEN,URINE NEGATIVE (NEGATIVE); BARBITURATE SCREEN,UR NEGATIVE (NEGATIVE); BENZODIAZEPINES SCREEN, URINE POSITIVE (NEGATIVE); COCAINE SCREEN URINE NEGATIVE (NEGATIVE); METHADONE SCREEN, URINE NEGATIVE (NEGATIVE); METHAMPHETAMINES SCREEN, URINE NEGATIVE (NEGATIVE); OPIATE SCREEN, URINE NEGATIVE (NEGATIVE); OXYCODONE SCREEN, URINE NEGATIVE (NEGATIVE); PROPOXYPHENE SCREEN, URINE NEGATIVE (NEGATIVE); THC CANNABINOID SCREEN, URINE NEGATIVE (NEGATIVE); TRICYCLIC ANTIDEPRESSANT,URINE NEGATIVE (NEGATIVE)
[2022-02-03] MEDS: QUEtiapine 25 MG TABLET PO SCH (20:17)
[2022-02-03] MEDS: lisinopriL 5 MG TABLET PO SCH (20:17)
[2022-02-03] MEDS: metFORMIN 500 MG TABLET PO SCH (20:17)
[2022-02-03] MEDS ORDERED: polyethylene glycoL 3350 17 GM PACKET PO STA (20:32)
[2022-02-04] MEDS: CARBIDOPA/LEVODOPA 25 MG/100 MG TABLET PO SCH ×5 (06:05→22:05)
[2022-02-04] MEDS: PANTOPRAZOLE 40 MG TABLET PO SCH (06:34)
[2022-02-04] MEDS: QUEtiapine 25 MG TABLET PO SCH ×2 (09:39→20:55)
[2022-02-04] MEDS: metFORMIN 500 MG TABLET PO SCH ×2 (09:39→20:55)
[2022-02-04] MEDS: lisinopriL 5 MG TABLET PO SCH (20:55)
[2022-02-05] MEDS: CARBIDOPA/LEVODOPA 25 MG/100 MG TABLET PO SCH ×5 (06:05→21:54)
[2022-02-05] MEDS: PANTOPRAZOLE 40 MG TABLET PO SCH (06:42)
[2022-02-05] MEDS: metFORMIN 500 MG TABLET PO SCH ×2 (09:30→20:58)
[2022-02-05] MEDS: QUEtiapine 25 MG TABLET PO SCH ×2 (09:30→20:58)
[2022-02-05] MEDS: ACETAMINOPHEN 500 MG TABLET PO PRN ×2 (14:11→23:40)
--- NOTE | 2022-02-05 18:07 | ED Physician Documentation ---
ED Addendum - Addendum Addendum: 02/05/22 18:07 He has been up and around the times today but mostly sitting in bed. Feeding himself. Sometimes slightly impulsive and asking for help and then mumbling and he cannot quite really tell what he is asking for. Social work is working on disposition. He has no specific complaints.
[2022-02-05] MEDS: lisinopriL 5 MG TABLET PO SCH (20:58)
[2022-02-06] MEDS ORDERED: KETOROLAC 60 MG/2 ML VIAL IM STA (00:53)
[2022-02-06] MEDS ORDERED: diphenhydrAMINE INJ 50 MG/ML VIAL IM STA (01:12)
[2022-02-06] MEDS ORDERED: HALOPERIDOL 5 MG/ML VIAL IM STA (01:12)
--- NOTE | 2022-02-06 04:19 | ED Physician Documentation ---
ED Addendum - Addendum Addendum: 02/06/22 04:17 Patient received a signout from outgoing physician, please see their do cumentation for further detail. In short patient was brought in by ambulance with CYNTHIA paperwork for concern for inability to care for self. Has history of Parkinson's dementia as well as violent outbursts. Was hospitalized here recently under similar circumstances. reportedly has a restraining order against him and he cannot go home. I evaluated him and family at bedside at approximately oh 3:30 AM. He was found to be sitting at the side of his bed. He did have some agitation and I did order for some Haldol and Benadryl. Additionally he had complaints of significant total body pain and he is given a dose of Toradol. On reevaluation is found to be resting comfortably and in no acute distress. I will be signing this patient out to the oncoming physician. Please see their documentation for further detail.
[2022-02-06] MEDS: CARBIDOPA/LEVODOPA 25 MG/100 MG TABLET PO SCH ×5 (06:01→21:31)
[2022-02-06] MEDS: PANTOPRAZOLE 40 MG TABLET PO SCH (06:31)
[2022-02-06] MEDS: metFORMIN 500 MG TABLET PO SCH ×2 (09:33→20:57)
[2022-02-06] MEDS: QUEtiapine 25 MG TABLET PO SCH ×2 (09:33→20:57)
[2022-02-06] MEDS: ACETAMINOPHEN 500 MG TABLET PO PRN (14:08)
--- NOTE | 2022-02-06 18:10 | ED Physician Documentation ---
ED Addendum - Addendum Addendum: 02/06/22 18:09 Was notified by the nursing staff that the patient complained of testicular pain. When I went to evaluate the patient he states that he has no pain anywhere. Testicular exam was performed. There is no swelling, no skin breakdown. No tenderness on palpation. Apparent normal testicular exam. We will continue to monitor.
[2022-02-06] MEDS: lisinopriL 5 MG TABLET PO SCH (20:57)
[2022-02-07] MEDS: CARBIDOPA/LEVODOPA 25 MG/100 MG TABLET PO SCH ×5 (05:31→22:04)
[2022-02-07] MEDS: PANTOPRAZOLE 40 MG TABLET PO SCH (06:52)
[2022-02-07] MEDS: metFORMIN 500 MG TABLET PO SCH ×2 (08:38→21:05)
[2022-02-07] MEDS: QUEtiapine 25 MG TABLET PO SCH ×2 (08:38→21:05)
--- NOTE | 2022-02-07 18:12 | ED Physician Documentation ---
ED Addendum - Addendum Addendum: 02/07/22 18:11 The patient was signed out to me at change of shift, pending social work evaluation and placement. The patient had no issues during the day and required no additional interventions. He is continuing to board in the ED, pending final disposition.
[2022-02-07] MEDS: lisinopriL 5 MG TABLET PO SCH (21:05)
[2022-02-08] MEDS: CARBIDOPA/LEVODOPA 25 MG/100 MG TABLET PO SCH ×5 (09:07→21:05)
[2022-02-08] MEDS: QUEtiapine 25 MG TABLET PO SCH ×2 (09:33→21:05)
[2022-02-08] MEDS: metFORMIN 500 MG TABLET PO SCH ×2 (09:33→21:04)
[2022-02-08] MEDS: PANTOPRAZOLE 40 MG TABLET PO SCH (09:33)
--- NOTE | 2022-02-08 13:05 | ED Physician Documentation ---
ED Addendum - Addendum Addendum: 02/08/22 13:05 Patient has no specific complaints for me. Reportedly did not take his medications this morning. Social work continues to work on Medicaid application with his . It does not sound like any placement is possible until that is done and approved.
[2022-02-08] MEDS: lisinopriL 5 MG TABLET PO SCH (21:04)
[2022-02-09] MEDS: ACETAMINOPHEN 500 MG TABLET PO PRN (05:56)
[2022-02-09] MEDS: CARBIDOPA/LEVODOPA 25 MG/100 MG TABLET PO SCH ×5 (05:56→23:34)
[2022-02-09] MEDS: PANTOPRAZOLE 40 MG TABLET PO SCH (06:30)
--- NOTE | 2022-02-09 08:43 | ED Physician Documentation ---
ED Addendum - Addendum Addendum: 02/09/22 08:42 Patient is Boarding in the emergency department and placement. He has been started on medication for dementia with agitation. There were no events overnight. He is sitting up eating breakfast with no concerns or complaints.
[2022-02-09] MEDS: metFORMIN 500 MG TABLET PO SCH ×2 (09:32→22:16)
[2022-02-09] MEDS: QUEtiapine 25 MG TABLET PO SCH ×2 (09:33→22:17)
[2022-02-09] MEDS ORDERED: SODIUM CHLORIDE 0.9% 1,000 ML IV STA ×3 (22:38→23:43)
[2022-02-09 22:48] LABS: BASOPHILS % (AUTO) 0.4 %; EOSINOPHILS # (AUTO) 0.3 10^3/uL (0.0-0.7); HCT - HEMATOCRIT 46.3 % (42.0-52.0); HGB - HEMOGLOBIN 14.9 g/dL (14.0-18.0); LYMPHOCYTES # (AUTO) 1.5 10^3/uL (1.5-3.5); LYMPHOCYTES % (AUTO) 14.2 %; MEAN CORPUSCULAR HEMOGLOBIN 31.9 pg (27.0-31.0); MEAN CORPUSCULAR HGB CONC 32.2 g/dL (32.0-36.0); MEAN CORPUSCULAR VOLUME 99.1 fL (80.0-94.0); MEAN PLATELET VOLUME 9.3 fL (7.4-11.4); MONOCYTES # (AUTO) 0.7 10^3/uL (0.0-1.0); NEUTROPHILS # (AUTO) 7.8 10^3/uL (1.5-6.6); PLT - PLATELET COUNT 264 10^3/uL (130-450); RED BLOOD COUNT 4.67 10^6/uL (4.70-6.10); RED CELL DISTRIBUTION WIDTH 12.6 % (12.0-15.0); WHITE BLOOD COUNT 10.4 x10^3/uL (4.8-10.8)
[2022-02-09 22:58] LABS: CALCIUM 8.9 mg/dL (8.5-10.3); POTASSIUM 4.3 mmol/L (3.5-5.0)
[2022-02-10] MEDS: lisinopriL 5 MG TABLET PO SCH (00:58)
[2022-02-10] MEDS ORDERED: LORazepam 2 MG/ML VIAL IM STA (04:46)
[2022-02-10] MEDS ORDERED: LORazepam 2 MG/ML VIAL IVP STA (04:48)
[2022-02-10] MEDS: CARBIDOPA/LEVODOPA 25 MG/100 MG TABLET PO SCH ×5 (05:49→22:10)
[2022-02-10] MEDS ORDERED: SODIUM CHLORIDE 0.9% 1,000 ML IV STA ×2 (06:15→07:39)
[2022-02-10] MEDS: PANTOPRAZOLE 40 MG TABLET PO SCH (06:47)
[2022-02-10 08:53] LABS: BASOPHILS # (AUTO) 0.1 10^3/uL (0.0-0.1); BASOPHILS % (AUTO) 0.7 %; EOSINOPHILS # (AUTO) 0.4 10^3/uL (0.0-0.7); EOSINOPHILS % (AUTO) 5.1 %; HCT - HEMATOCRIT 50.5 % (42.0-52.0); HGB - HEMOGLOBIN 15.6 g/dL (14.0-18.0); LYMPHOCYTES # (AUTO) 1.4 10^3/uL (1.5-3.5); LYMPHOCYTES % (AUTO) 16.9 %; MEAN CORPUSCULAR HGB CONC 30.9 g/dL (32.0-36.0); MEAN CORPUSCULAR VOLUME 103.5 fL (80.0-94.0); MEAN PLATELET VOLUME 9.3 fL (7.4-11.4); MONOCYTES # (AUTO) 0.6 10^3/uL (0.0-1.0); MONOCYTES % (AUTO) 7.6 %; NEUTROPHILS # (AUTO) 5.7 10^3/uL (1.5-6.6); NEUTROPHILS % (AUTO) 67.2 %; PLT - PLATELET COUNT 196 10^3/uL (130-450); RED BLOOD COUNT 4.88 10^6/uL (4.70-6.10); RED CELL DISTRIBUTION WIDTH 12.4 % (12.0-15.0); WHITE BLOOD COUNT 8.4 x10^3/uL (4.8-10.8)
[2022-02-10 09:07] LABS: ALBUMIN 3.6 g/dL (3.2-5.5); ALBUMIN/GLOBULIN RATIO 1.3 (1.0-2.2); ALKALINE PHOSPHATASE 58 IU/L (42-121); ALT ALANINE AMINOTRANSFERASE < 10 IU/L (10-60); AST ASPARTATE AMINOTRANSFERASE 41 IU/L (10-42); BILIRUBIN,TOTAL 1.1 mg/dL (0.2-1.0); BUN - BLOOD UREA NITROGEN 41 mg/dL (6-20); CALCIUM 8.4 mg/dL (8.5-10.3); CARBON DIOXIDE - CO2 21 mmol/L (21-32); CHLORIDE 105 mmol/L (101-111); CREATININE 1.3 mg/dL (0.6-1.2); GFR - MDRD 55 (>89); GLUCOSE 89 mg/dL (70-100); POTASSIUM 4.4 mmol/L (3.5-5.0); SODIUM 134 mmol/L (135-145); TOTAL PROTEIN 6.4 g/dL (6.7-8.2)
[2022-02-10] MEDS: metFORMIN 500 MG TABLET PO SCH ×2 (09:12→20:57)
[2022-02-10] MEDS: QUEtiapine 25 MG TABLET PO SCH ×2 (09:12→20:57)
--- NOTE | 2022-02-10 10:53 | ED Physician Documentation ---
ED Addendum - Addendum Addendum: 02/10/22 Patient received in signout. He has been boarding in the emergency department for agitation related to dementia and Parkinson's While social work is looking for placement.During the overnight shift his blood pressure was very low. He had repeat labs which showed an elevated creatinine and he was given 2 L of IV fluids with some improvement. Once the IV fluids had stopped his blood pressure again drifted down. He did receive IV Ativan 2 mg this morning for agitation. Upon my evaluation he grimaces to pain but is otherwise difficult to awake.I have rechecked the labs which show that creatinine has improved and lactic is slightly decreased.As he continues to be difficult to awake I will order a head CT. 02/10/22 15:07 Per XIAO Patricio, pt has been more awake and took medications from him. His BP has been Stable off of IV fluids. His repeat imaging was reviewed. There are abnormalities on the CT of the abdomen and pelvis that would require outpatient follow-up and I have included this information on the discharge tab. 02/10/22 1800 Patient was sitting up eating dinner. Appeared to be back at his baseline. Departure - Departure Clinical Impression: Dementia with parkinsonism Condition: Stable Comments: 02/10/22 - CT Abd/Pelvis: The main pancreatic duct is dilated, without an obstructing lesion identified by CT. This is a nonspecific finding, could be related to benign or malignant obstruction. Gastroenterology consultation may be helpful to direct further management, could consider endoscopic evaluation. If further imaging is desired, could consider MRI or CT of the pancreas.
[2022-02-10] MEDS ORDERED: iohexoL-300 100 ML VIAL ONE (11:49)
[2022-02-10 11:50] LABS: BILIRUBIN,URINE NEGATIVE (NEGATIVE); GLUCOSE, URINE (UA) NEGATIVE (NEGATIVE); KETONES,URINE (UA) NEGATIVE (NEGATIVE); LEUKOCYTE ESTERASE, URINE NEGATIVE (NEGATIVE); NITRITE,URINE NEGATIVE (NEGATIVE); OCCULT BLOOD,URINE NEGATIVE (NEGATIVE); PROTEIN,URINE NEGATIVE (NEGATIVE); UROBILINOGEN,URINE 0.2 (NORMAL) E.U./dL (NORMAL)
[2022-02-10 11:51] LABS: CLARITY,URINE CLEAR (CLEAR)
--- NOTE | 2022-02-10 12:25 | CT Report ---
PROCEDURE: CT HEAD WO INDICATIONS: Altered mental status. TECHNIQUE: Noncontrast 4.5 mm thick angled axial sections acquired from the foramen magnum to the vertex. For r adiation dose reduction, the following was used: automated exposure control, adjustment of mA and/or kV according to patient size. COMPARISON: Head CT 02/01/2022 FINDINGS: Image quality: Adequate. CSF spaces: Basal cisterns are patent. No extra-axial fluid collections. Ventricles are normal in size and shape. Brain: No midline shift. No intracranial masses or hemorrhage. Cartwright-white matter interface is norm al. Skull and face: Calvarium and visualized facial bones are intact, without suspicious lesions. Sinuses: Visualized sinuses and mastoids are clear. IMPRESSION: No intracranial hemorrhage or other acute intracranial abnormality. Reviewed by: Anthony Hargrove MD on 02/10/2022 12:24 PM PST Approved by: Anthony Hargrove MD on 02/10/2022 12:24 PM PST Station ID: [id number]
--- NOTE | 2022-02-10 12:39 | XRAY Report ---
PROCEDURE: Chest 1 View X-Ray INDICATIONS: hypotensive TECHNIQUE: One view of the chest was acquired. COMPARISON: 02/01/2022 FINDINGS: Surgical changes and devices: None. Lungs and pleura: Low lung volumes. Diffuse interstitial thickening, likely accentuated by technique and low lung volumes. No pneumothorax or significant new opacity. Mediastinum: Mediastinal contours appear normal. Heart size is normal. Bones and chest wall: No suspicious bony lesions. Overlying soft tissues appear unremarkable. IMPRESSION: Mild diffuse interstitial thickening may indicate interstitial edema or development of pneumonitis. Reviewed by: Brooklynn Maharaj MD on 02/10/2022 12:38 PM PST Approved by: Brooklynn Maharaj MD on 02/10/2022 12:38 PM PST Station ID: [id number]
--- NOTE | 2022-02-10 12:49 | CT Report ---
PROCEDURE: ABDOMEN/PELVIS W INDICATIONS: hypotension. Abdominal pain. CONTRAST: 100ml Omnipaque 300 TECHNIQUE: After the administration of intravenous contrast, 5 mm thick sections acquired from the diaphragms to the symphysis. 5 mm thick coronal and sagittal reformats were acquired. For radiation dose reducti on, the following was used: automated exposure control, adjustment of mA and/or kV according to phill ent size. COMPARISON: None. FINDINGS: Image quality: Adequate. Visualized lung bases: No pleural effusion. Liver and biliary tree: 2.8 cm cyst at the central aspect of the right hepatic lobe. Additional small scattered hypodensities are present, too small to characterize, but possibly cysts and/or hemangioma ta. No biliary ductal dilation demonstrated. Gallbladder: No radiopaque cholelithiasis. Spleen: Unremarkable. Pancreas: Dilation of the main duct is present at the pancreatic head, neck, and downstream body. The main duct at the tail is normal caliber. The duct is dilated to the level of the ampulla. An obstruc ting lesion is not identified. The duct measures up to 10 mm. Adrenal glands: Unremarkable. Kidneys and ureters: No hydronephrosis. 3 mm nonobstructing stone left upper kidney. Gastrointestinal tract: No bowel obstruction. No evidence of acute appendicitis. Peritoneal cavity: No free air or free fluid. Bladder: Distended. Pelvic organs: Prostatomegaly. Vasculature: No abdominal aortic aneurysm. Lymph nodes: No highly suspicious lymph nodes visualized. Musculoskeletal: Degenerative change of the spine. IMPRESSION: 1. The urinary bladder is distended. If the patient is unable to void, catheterization may be of bene fit. 2. The main pancreatic duct is dilated, without an obstructing lesion identified by CT. This is a non specific finding, could be related to benign or malignant obstruction. Gastroenterology consultation may be helpful to direct further management, could consider endoscopic evaluation. If further imaging is desired, could consider MRI or CT of the pancreas. 3. Small nonobstructing stone at the left upper kidney. Reviewed by: Anthony Hargrove MD on 02/10/2022 12:48 PM [facility] Approved by: Anthony Hargrove MD on 02/10/2022 12:48 PM PST Station ID: [id number]
[2022-02-10] MEDS ORDERED: iohexoL-300 100 ML VIAL IVP ONE (13:28)
[2022-02-11] MEDS: CARBIDOPA/LEVODOPA 25 MG/100 MG TABLET PO SCH ×5 (06:35→21:51)
[2022-02-11] MEDS: PANTOPRAZOLE 40 MG TABLET PO SCH (06:45)
[2022-02-11] MEDS ORDERED: diazePAM INJ 5 MG/ML SYRINGE IM STA (07:41)
--- NOTE | 2022-02-11 08:44 | ED Physician Documentation ---
Restraint [id number] - Immediate Situation Face to Face Evaluation Date: 02/11/22 Face to Face Evaluation Time: 08:43 Restraint Classification: Violent, chemical Restraint Type: Physical escort - Patient's Reaction & Behaviors Safety: Physically unsafe (The patient was repeatedly getting out of bed and slumped to the floor once without any injury. He was not cognizant of able to follow commands. He was helped back into bed a couple of times and was trying to grab at or punch at providers. He just seemed confused and agitated. Meds for safety.) Verbal: Demanding Harm: Potential harm to self, Potential harm to others Physical: Aggressive behavior, Punching Other: Disruption of therapy - Behavioral Condition Attitude: Guarded Behavior: Uncooperative Orientation: Person Mood: Angry Behavioral Condition Comments: I reviewed his current medication regimen of Seroquel 20 5 in the morning and 50 at night. I believe we can increase his daily Seroquel dose. He may benefit from a telepsych consult for medication adjustment as well. - Evaluation Review of Systems: He is moving all extremities with good strength. He does exhibit some rigidity of muscle tone consistent with his Parkinson's. Respirations are unlabored. Heart is regular. He denies any pains in head chest or belly. Pertinent History/Illicit Drugs/Medications/Results: Parkinson's and dementia with behavioral aspects apparently more recently. - Plan Need to Continue or Terminate Violent or Chemical Restraint: We will try to help with his agitation which is led to behavioral lashing out. He is also wanting to roam from bed but is unable to hold himself up coordinately.
[2022-02-11] MEDS: QUEtiapine 25 MG TABLET PO SCH ×2 (09:23→20:22)
[2022-02-11] MEDS: metFORMIN 500 MG TABLET PO SCH ×2 (09:24→20:22)
--- NOTE | 2022-02-11 14:33 | ED Physician Documentation ---
ED Addendum - Addendum Addendum: 02/11/22 14:31 The patient has remained somnolent but arousable through the day. He is cooperative with providers as they attend and check on him. I did provide right for increased dose of his Seroquel from 20 5 in the morning and 50 at night to now 50 mg twice daily. I would consider telepsych consult for medication suggestions. However he still somnolent at this time so I would defer it to later or tomorrow. Social work assessing as well.
[2022-02-11] MEDS ORDERED: LORazepam 0.5 MG TABLET PO STA (22:01)
--- NOTE | 2022-02-11 22:03 | ED Physician Documentation ---
ED Addendum - Addendum Addendum: 02/11/22 22:02 lorazepam ordered due to restlessness and to help with sleep
[2022-02-12] MEDS: CARBIDOPA/LEVODOPA 25 MG/100 MG TABLET PO SCH ×5 (06:09→21:57)
[2022-02-12] MEDS: PANTOPRAZOLE 40 MG TABLET PO SCH (06:41)
[2022-02-12] MEDS: metFORMIN 500 MG TABLET PO SCH ×2 (09:12→21:16)
[2022-02-12] MEDS: QUEtiapine 25 MG TABLET PO SCH ×2 (09:12→21:16)
--- NOTE | 2022-02-12 17:51 | ED Physician Documentation ---
ED Addendum - Addendum Addendum: 02/12/22 17:49 The patient rested fairly comfortably through the day. He ate without any problems. He is not having any behavioral issues. He was cooperative. He had started at a higher dose of the Seroquel 50 mg twice daily yesterday. Hopefully this is leading to improvement. Yesterday I had ordered a telepsych consult. It had not gotten done overnight. I checked with our social media community manager who said the patient had had already telepsych consults during his hospitalization here. I actually could not find any telepsych reports nor any prior orders for it and there were no reports on his chart so I am not really sure what the recommendations had been from that. We will try to round up the prior evaluations if they are available. Otherwise would be helpful to have read recommendation for any medications adjusted in light of him having still some behavioral acting out earlier yesterday. It may be my adjusted medication is adequate. However further input is always good. We will try to find the prior telepsych report.
[2022-02-12] MEDS ORDERED: KETOROLAC 15 MG/ML VIAL IM STA (23:57)
[2022-02-12] MEDS ORDERED: KETOROLAC 30 MG/ML VIAL ONE (23:59)
[2022-02-13] MEDS ORDERED: LORazepam 0.5 MG TABLET PO STA (00:51)
[2022-02-13] MEDS: CARBIDOPA/LEVODOPA 25 MG/100 MG TABLET PO SCH ×5 (06:00→21:43)
[2022-02-13] MEDS: PANTOPRAZOLE 40 MG TABLET PO SCH (06:39)
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
--- NOTE | 2022-02-13 08:38 | ED Physician Documentation ---
ED Addendum - Addendum Addendum: 02/13/22 08:36 The patient overnight did have finally a telepsych consult. The reportedly prior telepsych consult had been on his previous admission here in the ER with some medication suggestions that had included the Seroquel. There had not been a evaluation as of this day. The consultation is on the chart at this time and there were medication recommendations to help with his behavior and cognition to be less agitated and therefore less acting out. These medications were ordered in [facility] by the psychiatrist. We will continue working on placement issues for the patient. Obviously this is hindered by being [place] and holiday.. Otherwise the patient is maintained on the current regimen of hygiene and diet and hydration.
[2022-02-13] MEDS: metFORMIN 500 MG TABLET PO SCH ×2 (10:28→21:43)
[2022-02-13] MEDS: traZODone 50 MG TABLET PO SCH ×2 (10:28→21:43)
[2022-02-13] MEDS: SERTRALINE 50 MG TABLET PO SCH (10:28)
[2022-02-13] MEDS: QUEtiapine 25 MG TABLET PO SCH ×2 (10:28→21:43)
[2022-02-13] MEDS: clonazePAM 0.5 MG TABLET PO SCH ×2 (10:28→21:43)
[2022-02-14] MEDS: CARBIDOPA/LEVODOPA 25 MG/100 MG TABLET PO SCH ×5 (05:51→21:26)
[2022-02-14] MEDS: PANTOPRAZOLE 40 MG TABLET PO SCH (06:30)
[2022-02-14] MEDS: metFORMIN 500 MG TABLET PO SCH ×2 (09:38→21:26)
[2022-02-14] MEDS: clonazePAM 0.5 MG TABLET PO SCH ×2 (09:38→21:26)
[2022-02-14] MEDS: SERTRALINE 50 MG TABLET PO SCH (09:38)
[2022-02-14] MEDS: QUEtiapine 25 MG TABLET PO SCH ×2 (09:38→21:26)
[2022-02-14] MEDS: traZODone 50 MG TABLET PO SCH ×2 (09:39→21:26)
[2022-02-15] MEDS: PANTOPRAZOLE 40 MG TABLET PO SCH (06:03)
[2022-02-15] MEDS: CARBIDOPA/LEVODOPA 25 MG/100 MG TABLET PO SCH ×5 (06:03→22:03)
[2022-02-15] MEDS: metFORMIN 500 MG TABLET PO SCH ×2 (09:02→20:54)
[2022-02-15] MEDS: QUEtiapine 25 MG TABLET PO SCH ×2 (09:02→20:54)
[2022-02-15] MEDS: clonazePAM 0.5 MG TABLET PO SCH ×2 (09:02→20:54)
[2022-02-15] MEDS: traZODone 50 MG TABLET PO SCH ×2 (09:03→20:54)
[2022-02-15] MEDS: SERTRALINE 50 MG TABLET PO SCH (09:03)
--- NOTE | 2022-02-15 11:18 | ED Physician Documentation ---
ED Addendum - Addendum Addendum: 02/15/22 11:18 Laying in bed generally cooperative, mostly mumbling but does answer direct questions, patient still pending placement.
[2022-02-16] MEDS: CARBIDOPA/LEVODOPA 25 MG/100 MG TABLET PO SCH ×5 (06:29→21:06)
[2022-02-16] MEDS: PANTOPRAZOLE 40 MG TABLET PO SCH (06:30)
[2022-02-16] MEDS: QUEtiapine 25 MG TABLET PO SCH ×2 (10:33→21:08)
[2022-02-16] MEDS: traZODone 50 MG TABLET PO SCH ×2 (10:33→21:07)
[2022-02-16] MEDS: clonazePAM 0.5 MG TABLET PO SCH ×2 (10:33→21:10)
[2022-02-16] MEDS: SERTRALINE 50 MG TABLET PO SCH (10:33)
[2022-02-16] MEDS: metFORMIN 500 MG TABLET PO SCH ×2 (10:34→21:11)
[2022-02-16] MEDS: ACETAMINOPHEN 500 MG TABLET PO PRN (14:24)
--- NOTE | 2022-02-16 14:29 | ED Physician Documentation ---
ED Addendum - Addendum Addendum: 02/16/22 14:28 Earlier my shift he seemed as per usual, around 2 PM today he started c omplaining of right-sided rib pain. He points to the right lower costal margin, anterior axillary line as the site of pain. I am not able to reproduce it. No abdominal tenderness. He denies shortness of breath, but the pain does get worse if he takes a deep breath. Vital signs are not suggestive of thromboembolic disease to the chest. Especially without shortness of breath. We will check an x-ray. He is medicated with Tylenol for this. Otherwise the plan is as it has been with social work consultation for placement. 02/16/22 15:15 Single view chest x-ray demonstrates low lung volumes and trace pleural fluid without obvious acute abnormality.
--- NOTE | 2022-02-16 14:54 | XRAY Report ---
PROCEDURE: Chest 1 View X-Ray INDICATIONS: chest wall pain TECHNIQUE: One view of the chest was acquired. COMPARISON: Single view the chest dated 02/10/2022 FINDINGS: This is a limited study given patient positioning. Surgical changes and devices: None. Lungs and pleura: Lung volumes are low. There is elevation of the right hemidiaphragm as before. Tra ce fluid likely tracks along the right horizontal fissure. No new focal airspace opacities. Mediastinum: Mediastinal contours appear normal. Heart size is normal. Bones and chest wall: No suspicious bony lesions. Overlying soft tissues appear unremarkable. IMPRESSION: Low lung volumes. Trace pleural fluid. Reviewed by: Kristie Joyner MD on 02/16/2022 2:53 PM PST Approved by: Kristie Joyner MD on 02/16/2022 2:53 PM PST Station ID: [id number]
[2022-02-17] MEDS: metFORMIN 500 MG TABLET PO SCH ×2 (09:00→22:00)
[2022-02-17] MEDS: SERTRALINE 50 MG TABLET PO SCH (09:00)
[2022-02-17] MEDS: PANTOPRAZOLE 40 MG TABLET PO SCH (09:00)
[2022-02-17] MEDS: QUEtiapine 25 MG TABLET PO SCH ×2 (09:00→22:00)
[2022-02-17] MEDS: clonazePAM 0.5 MG TABLET PO SCH ×2 (09:00→22:00)
[2022-02-17] MEDS: CARBIDOPA/LEVODOPA 25 MG/100 MG TABLET PO SCH ×5 (09:00→22:00)
[2022-02-17] MEDS: traZODone 50 MG TABLET PO SCH ×2 (09:00→22:00)
--- NOTE | 2022-02-17 16:53 | ED Physician Documentation ---
ED Addendum - Addendum Addendum: 02/17/22 16:53 Patient is still awaiting placement. No changes today. Patient will continue to board in the emergency department.
[2022-02-18] MEDS: PANTOPRAZOLE 40 MG TABLET PO SCH (07:57)
[2022-02-18] MEDS: CARBIDOPA/LEVODOPA 25 MG/100 MG TABLET PO SCH ×5 (07:57→21:45)
[2022-02-18] MEDS: clonazePAM 0.5 MG TABLET PO SCH ×2 (09:15→20:12)
[2022-02-18] MEDS: traZODone 50 MG TABLET PO SCH ×2 (09:15→20:12)
[2022-02-18] MEDS: SERTRALINE 50 MG TABLET PO SCH (09:15)
[2022-02-18] MEDS: QUEtiapine 25 MG TABLET PO SCH ×2 (09:15→20:12)
[2022-02-18] MEDS: metFORMIN 500 MG TABLET PO SCH ×2 (09:15→20:12)
[2022-02-18] MEDS: ACETAMINOPHEN 500 MG TABLET PO PRN (10:00)
--- NOTE | 2022-02-18 13:11 | ED Physician Documentation ---
ED Addendum - Addendum Addendum: 02/18/22 13:09 The patient was calm and resting at the time I talked with him. He responded in a calm demeanor. Review of nursing notes from the last day did not show an acute outburst etc. At this point I feel we can continue with current medication diet and activity.
[2022-02-18] MEDS ORDERED: KETOROLAC 10 MG TABLET PO STA (14:04)
[2022-02-18] MEDS: COD LIVER OIL/ZINC OXIDE 113 GM TUBE TOP SCH (20:46)
[2022-02-19] MEDS: CARBIDOPA/LEVODOPA 25 MG/100 MG TABLET PO SCH ×5 (06:04→21:47)
[2022-02-19] MEDS: PANTOPRAZOLE 40 MG TABLET PO SCH (06:31)
[2022-02-19] MEDS: clonazePAM 0.5 MG TABLET PO SCH ×2 (08:48→21:07)
[2022-02-19] MEDS: traZODone 50 MG TABLET PO SCH ×2 (08:48→21:06)
[2022-02-19] MEDS: SERTRALINE 50 MG TABLET PO SCH (08:48)
[2022-02-19] MEDS: metFORMIN 500 MG TABLET PO SCH ×2 (08:48→21:06)
[2022-02-19] MEDS: QUEtiapine 25 MG TABLET PO SCH ×2 (08:48→21:06)
[2022-02-19] MEDS: COD LIVER OIL/ZINC OXIDE 113 GM TUBE TOP SCH ×2 (09:41→21:22)
--- NOTE | 2022-02-19 16:00 | ED Physician Documentation ---
ED Addendum - Addendum Addendum: 02/19/22 16:00 No real interval change from yesterday. Plan for patient been around if possible with some therapy. Therapist are not here for the holiday but will resume on Monday. Continue usual medications and diet.
[2022-02-20] MEDS: CARBIDOPA/LEVODOPA 25 MG/100 MG TABLET PO SCH ×5 (05:56→21:30)
[2022-02-20] MEDS: COD LIVER OIL/ZINC OXIDE 113 GM TUBE TOP SCH ×2 (06:15→20:54)
[2022-02-20] MEDS: PANTOPRAZOLE 40 MG TABLET PO SCH (06:33)
[2022-02-20] MEDS: clonazePAM 0.5 MG TABLET PO SCH ×2 (09:19→20:54)
[2022-02-20] MEDS: metFORMIN 500 MG TABLET PO SCH ×2 (09:19→20:54)
[2022-02-20] MEDS: traZODone 50 MG TABLET PO SCH ×2 (09:20→20:54)
[2022-02-20] MEDS: SERTRALINE 50 MG TABLET PO SCH (09:20)
[2022-02-20] MEDS: QUEtiapine 25 MG TABLET PO SCH ×2 (09:20→20:54)
--- NOTE | 2022-02-20 09:45 | ED Physician Documentation ---
ED Addendum - Addendum Addendum: 02/20/22 09:43 The patient is resting comfortably this morning. He rouses easily and interacts at baseline. He does not appear agitated. The with the holiday weekend, there has not been any physical therapy. He had been getting some physical therapy activity couple of days ago. He has been getting regular nursing care and hygiene. He has been eating adequately. No behavioral outbursts or such for quite a while now. Current medication regimen seems to be working well. Plan would be to continue current nursing and therapy treatments, diet, medication regimen and awaiting placement considerations. Social work should be back tomorrow or the next day and resume their work on it. Last social work note stated in [facility] intake form and referral has been placed and were awaiting return information. 02/20/22 09:46
[2022-02-20] MEDS: ACETAMINOPHEN 500 MG TABLET PO PRN (15:33)
[2022-02-21] MEDS: CARBIDOPA/LEVODOPA 25 MG/100 MG TABLET PO SCH ×5 (05:56→21:03)
[2022-02-21] MEDS ORDERED: MINERAL OIL ENEMA 133 ML BOTTLE RC STA (06:35)
[2022-02-21] MEDS: PANTOPRAZOLE 40 MG TABLET PO SCH (06:37)
[2022-02-21] MEDS ORDERED: bisacodyL 5 MG TABLET PO STA (07:30)
[2022-02-21] MEDS ORDERED: MAGNESIUM HYDROXIDE 2,400 MG/30 ML UDC PO STA (07:30)
--- NOTE | 2022-02-21 07:31 | ED Physician Documentation ---
ED Addendum - Addendum Addendum: 02/21/22 07:30 Reportedly required some disimpaction overnight but did not tolerate it well. He is comfortable upon my examination so will add daily MiraLAX but a little more of an aggressive bowel regimen this morning. Unfortunately he does not seem to be declining over time, getting out of bed less and less. This is despite having PT and OT work with him and we have been trying to get him out of bed is much as possible. That said, this is simply not the right environment for him. Social work returns tomorrow after the holiday weekend.
[2022-02-21] MEDS: clonazePAM 0.5 MG TABLET PO SCH ×2 (08:40→21:03)
[2022-02-21] MEDS: COD LIVER OIL/ZINC OXIDE 113 GM TUBE TOP SCH ×2 (08:40→21:07)
[2022-02-21] MEDS: metFORMIN 500 MG TABLET PO SCH ×2 (08:41→21:03)
[2022-02-21] MEDS: SERTRALINE 50 MG TABLET PO SCH (08:41)
[2022-02-21] MEDS: traZODone 50 MG TABLET PO SCH ×2 (08:41→21:03)
[2022-02-21] MEDS: QUEtiapine 25 MG TABLET PO SCH ×2 (08:41→21:03)
[2022-02-22] MEDS: CARBIDOPA/LEVODOPA 25 MG/100 MG TABLET PO SCH ×5 (05:36→22:31)
[2022-02-22] MEDS: PANTOPRAZOLE 40 MG TABLET PO SCH (06:31)
[2022-02-22] MEDS: clonazePAM 0.5 MG TABLET PO SCH ×2 (08:35→22:20)
[2022-02-22] MEDS: metFORMIN 500 MG TABLET PO SCH ×2 (08:36→22:14)
[2022-02-22] MEDS: COD LIVER OIL/ZINC OXIDE 113 GM TUBE TOP SCH ×2 (08:36→22:32)
[2022-02-22] MEDS: QUEtiapine 25 MG TABLET PO SCH ×2 (08:37→22:15)
[2022-02-22] MEDS: traZODone 50 MG TABLET PO SCH ×2 (08:37→22:15)
[2022-02-22] MEDS: SERTRALINE 50 MG TABLET PO SCH (08:37)
--- NOTE | 2022-02-22 17:58 | ED Physician Documentation ---
ED Addendum - Addendum Addendum: Patient seen on morning rounds with no current complaints. He did have family visit him at the bedside. Social work continues to work on placement.
[2022-02-23] MEDS: CARBIDOPA/LEVODOPA 25 MG/100 MG TABLET PO SCH ×5 (05:59→21:30)
[2022-02-23] MEDS: PANTOPRAZOLE 40 MG TABLET PO SCH (06:43)
[2022-02-23] MEDS: metFORMIN 500 MG TABLET PO SCH ×2 (10:01→21:30)
[2022-02-23] MEDS: clonazePAM 0.5 MG TABLET PO SCH ×2 (10:01→21:29)
[2022-02-23] MEDS: QUEtiapine 25 MG TABLET PO SCH ×2 (10:02→21:30)
[2022-02-23] MEDS: SERTRALINE 50 MG TABLET PO SCH (10:02)
[2022-02-23] MEDS: traZODone 50 MG TABLET PO SCH ×2 (10:05→21:30)
[2022-02-23] MEDS: COD LIVER OIL/ZINC OXIDE 113 GM TUBE TOP SCH ×2 (10:49→21:38)
--- NOTE | 2022-02-23 17:41 | ED Physician Documentation ---
ED Addendum - Addendum Addendum: Patient has been calm and cooperative. No outbursts During my shift. Remains in the emergency department pending placement for dementia with agitation. Plan to continue with current medications.
[2022-02-24] MEDS: CARBIDOPA/LEVODOPA 25 MG/100 MG TABLET PO SCH ×5 (08:01→22:20)
[2022-02-24] MEDS: PANTOPRAZOLE 40 MG TABLET PO SCH (08:01)
[2022-02-24] MEDS: QUEtiapine 25 MG TABLET PO SCH ×2 (10:16→21:01)
[2022-02-24] MEDS: clonazePAM 0.5 MG TABLET PO SCH ×2 (10:17→20:59)
[2022-02-24] MEDS: SERTRALINE 50 MG TABLET PO SCH (10:17)
[2022-02-24] MEDS: traZODone 50 MG TABLET PO SCH (10:17)
[2022-02-24] MEDS: metFORMIN 500 MG TABLET PO SCH ×2 (10:27→21:01)
[2022-02-24] MEDS: COD LIVER OIL/ZINC OXIDE 113 GM TUBE TOP SCH ×2 (10:28→21:19)
--- NOTE | 2022-02-24 12:02 | ED Physician Documentation ---
ED Addendum - Addendum Addendum: 02/24/22 12:01 The patient is interacting at baseline. No complaints when I talk with him. No particular change in treatment or medications needed at this time. Continue physical therapy for range of motion and some strengthening.
[2022-02-25] MEDS: ACETAMINOPHEN 500 MG TABLET PO PRN (01:29)
[2022-02-25] MEDS: CARBIDOPA/LEVODOPA 25 MG/100 MG TABLET PO SCH ×5 (05:37→21:17)
[2022-02-25] MEDS: PANTOPRAZOLE 40 MG TABLET PO SCH (06:34)
[2022-02-25] MEDS: metFORMIN 500 MG TABLET PO SCH ×2 (09:53→21:17)
[2022-02-25] MEDS: traZODone 50 MG TABLET PO SCH ×2 (09:53→21:18)
[2022-02-25] MEDS: SERTRALINE 50 MG TABLET PO SCH (09:53)
[2022-02-25] MEDS: COD LIVER OIL/ZINC OXIDE 113 GM TUBE TOP SCH ×2 (09:53→21:19)
[2022-02-25] MEDS: clonazePAM 0.5 MG TABLET PO SCH ×2 (09:53→21:16)
[2022-02-25] MEDS: QUEtiapine 25 MG TABLET PO SCH ×2 (09:53→21:17)
--- NOTE | 2022-02-25 12:14 | ED Physician Documentation ---
ED Addendum - Addendum Addendum: 02/25/22 12:13 The patient did not have any particular complaints today. Interacted at baseline this morning. No behavioral problems per nursing notes or report. Plan would be to continue current medications and diet and activity. Social work still working on the patient
[2022-02-26] MEDS: CARBIDOPA/LEVODOPA 25 MG/100 MG TABLET PO SCH ×5 (06:39→20:54)
[2022-02-26] MEDS: PANTOPRAZOLE 40 MG TABLET PO SCH (06:40)
[2022-02-26] MEDS: metFORMIN 500 MG TABLET PO SCH ×2 (10:37→20:54)
[2022-02-26] MEDS: clonazePAM 0.5 MG TABLET PO SCH ×2 (10:37→20:55)
[2022-02-26] MEDS: SERTRALINE 50 MG TABLET PO SCH (10:37)
[2022-02-26] MEDS: QUEtiapine 25 MG TABLET PO SCH ×2 (10:37→20:55)
[2022-02-26] MEDS: COD LIVER OIL/ZINC OXIDE 113 GM TUBE TOP SCH ×2 (10:37→20:54)
[2022-02-26] MEDS: traZODone 50 MG TABLET PO SCH ×2 (10:38→20:54)
[2022-02-27] MEDS: CARBIDOPA/LEVODOPA 25 MG/100 MG TABLET PO SCH ×5 (06:17→20:59)
[2022-02-27] MEDS: PANTOPRAZOLE 40 MG TABLET PO SCH (06:17)
[2022-02-27] MEDS: QUEtiapine 25 MG TABLET PO SCH ×2 (12:47→20:59)
[2022-02-27] MEDS: clonazePAM 0.5 MG TABLET PO SCH ×2 (12:47→20:58)
[2022-02-27] MEDS: traZODone 50 MG TABLET PO SCH ×2 (12:47→20:59)
[2022-02-27] MEDS: COD LIVER OIL/ZINC OXIDE 113 GM TUBE TOP SCH ×2 (12:47→20:31)
[2022-02-27] MEDS: metFORMIN 500 MG TABLET PO SCH ×2 (12:47→20:59)
[2022-02-27] MEDS: SERTRALINE 50 MG TABLET PO SCH (12:47)
--- NOTE | 2022-02-27 19:07 | ED Physician Documentation ---
ED Addendum - Addendum Addendum: 02/27/22 19:07 The patient was signed out to me at change of shift this morning, continuing to pend placement with social work. He has had no issues throughout the day. He ate well and had no complaints. He has been hemodynamically stable.
[2022-02-27] MEDS: polyethylene glycoL 3350 17 GM PACKET PO PRN (20:59)
[2022-02-28] MEDS: CARBIDOPA/LEVODOPA 25 MG/100 MG TABLET PO SCH ×5 (06:30→21:34)
[2022-02-28] MEDS: PANTOPRAZOLE 40 MG TABLET PO SCH (06:30)
--- NOTE | 2022-02-28 09:57 | ED Physician Documentation ---
ED Addendum - Addendum Addendum: 02/28/22 09:56 No noted problems by nursing notes in the last day or by report. Plan to continue current medications diet and therapy.
[2022-02-28] MEDS: metFORMIN 500 MG TABLET PO SCH ×2 (10:13→21:06)
[2022-02-28] MEDS: COD LIVER OIL/ZINC OXIDE 113 GM TUBE TOP SCH ×2 (10:13→21:06)
[2022-02-28] MEDS: clonazePAM 0.5 MG TABLET PO SCH ×2 (10:13→21:06)
[2022-02-28] MEDS: traZODone 50 MG TABLET PO SCH ×2 (10:14→21:06)
[2022-02-28] MEDS: SERTRALINE 50 MG TABLET PO SCH (10:14)
[2022-02-28] MEDS: QUEtiapine 25 MG TABLET PO SCH ×2 (10:14→21:06)
[2022-02-28] MEDS: ACETAMINOPHEN 500 MG TABLET PO PRN (13:24)
[2022-03-01] MEDS: PANTOPRAZOLE 40 MG TABLET PO SCH (05:54)
[2022-03-01] MEDS: CARBIDOPA/LEVODOPA 25 MG/100 MG TABLET PO SCH ×5 (05:54→21:51)
[2022-03-01] MEDS: SERTRALINE 50 MG TABLET PO SCH (08:40)
[2022-03-01] MEDS: QUEtiapine 25 MG TABLET PO SCH ×2 (08:40→20:26)
[2022-03-01] MEDS: clonazePAM 0.5 MG TABLET PO SCH ×2 (08:40→20:25)
[2022-03-01] MEDS: metFORMIN 500 MG TABLET PO SCH ×2 (08:41→20:25)
[2022-03-01] MEDS: traZODone 50 MG TABLET PO SCH ×2 (08:41→20:26)
[2022-03-01] MEDS: COD LIVER OIL/ZINC OXIDE 113 GM TUBE TOP SCH ×2 (08:44→19:43)
--- NOTE | 2022-03-01 19:37 | ED Physician Documentation ---
ED Addendum - Addendum Addendum: 03/01/22 19:36 No problems reported from Med/Surg nurse. Asks for routine bowel protocol in case of constipation; not a current issue. I will pass on to Hospitalist. Otherwise to continue current meds/diet/PT.
[2022-03-01] MEDS: ACETAMINOPHEN 500 MG TABLET PO PRN (20:32)
[2022-03-02] MEDS: PANTOPRAZOLE 40 MG TABLET PO SCH (05:34)
[2022-03-02] MEDS: CARBIDOPA/LEVODOPA 25 MG/100 MG TABLET PO SCH ×5 (05:34→21:58)
[2022-03-02] MEDS: COD LIVER OIL/ZINC OXIDE 113 GM TUBE TOP SCH ×2 (08:25→19:40)
[2022-03-02] MEDS: traZODone 50 MG TABLET PO SCH ×2 (08:26→21:59)
[2022-03-02] MEDS: SERTRALINE 50 MG TABLET PO SCH (08:26)
[2022-03-02] MEDS: metFORMIN 500 MG TABLET PO SCH ×3 (08:26→17:12)
[2022-03-02] MEDS: QUEtiapine 25 MG TABLET PO SCH ×2 (08:26→21:58)
[2022-03-02] MEDS: clonazePAM 0.5 MG TABLET PO SCH ×2 (08:26→21:58)
[2022-03-02] MEDS: CYCLOBENZAPRINE 10 MG TABLET PO PRN ×2 (12:10→19:40)
[2022-03-02] MEDS: ACETAMINOPHEN 500 MG TABLET PO PRN ×2 (17:39→23:45)
--- NOTE | 2022-03-02 18:37 | ED Physician Documentation ---
ED Addendum - Addendum Addendum: 03/02/22 18:36 The patient was signed out to me at change of shift, pending long-term care placement by social work. The patient had no issues during the day except for a notification by one of the floor nurses that the patient was complaining of leg cramps. She was requesting a muscle relaxer for the patient. I did order Flexeril. The patient had no other complaints or issues. He ate his meals and had no further acute issues. He is signed out to the oncoming emergency physic [place], Continuing to pend final disposition.
[2022-03-03] MEDS: PANTOPRAZOLE 40 MG TABLET PO SCH (05:02)
[2022-03-03] MEDS: CARBIDOPA/LEVODOPA 25 MG/100 MG TABLET PO SCH ×5 (05:02→22:21)
[2022-03-03] MEDS: SERTRALINE 50 MG TABLET PO SCH (08:07)
[2022-03-03] MEDS: metFORMIN 500 MG TABLET PO SCH ×2 (08:07→17:12)
[2022-03-03] MEDS: COD LIVER OIL/ZINC OXIDE 113 GM TUBE TOP SCH ×2 (08:07→18:04)
[2022-03-03] MEDS: QUEtiapine 25 MG TABLET PO SCH ×2 (08:08→21:09)
[2022-03-03] MEDS: traZODone 50 MG TABLET PO SCH ×2 (09:25→21:09)
[2022-03-03] MEDS: clonazePAM 0.5 MG TABLET PO SCH ×2 (09:25→21:09)
--- NOTE | 2022-03-03 13:19 | ED Physician Documentation ---
ED Addendum - Addendum Addendum: 03/03/22 13:19 Patient seen at bedside. No specific complaints, and the nurse does not have any specific concerns. Vital signs reviewed. He had a low normal blood pressure this morning. Other than that they are not concerning. Plan: 1: agitated dementia with parkinsonism, seems currently stable on current regimen of medications. He cannot return home so we are still seeking placement.
[2022-03-03] MEDS: CYCLOBENZAPRINE 10 MG TABLET PO PRN (17:16)
[2022-03-03] MEDS: polyethylene glycoL 3350 17 GM PACKET PO PRN (18:02)
[2022-03-04] MEDS: CARBIDOPA/LEVODOPA 25 MG/100 MG TABLET PO SCH ×5 (05:50→21:16)
[2022-03-04] MEDS: ACETAMINOPHEN 500 MG TABLET PO PRN (06:01)
[2022-03-04] MEDS: clonazePAM 0.5 MG TABLET PO SCH ×2 (08:25→21:16)
[2022-03-04] MEDS: QUEtiapine 25 MG TABLET PO SCH ×2 (08:25→21:15)
[2022-03-04] MEDS: PANTOPRAZOLE 40 MG TABLET PO SCH (08:28)
[2022-03-04] MEDS: metFORMIN 500 MG TABLET PO SCH ×2 (08:28→16:23)
[2022-03-04] MEDS: traZODone 50 MG TABLET PO SCH ×2 (08:28→21:16)
[2022-03-04] MEDS: SERTRALINE 50 MG TABLET PO SCH (08:29)
[2022-03-04] MEDS: COD LIVER OIL/ZINC OXIDE 113 GM TUBE TOP SCH ×2 (08:33→21:17)
--- NOTE | 2022-03-04 13:15 | ED Physician Documentation ---
ED Addendum - Addendum Addendum: 03/04/22 13:14 Patient seen and examined. He has no specific point. Per nurse he is doing well with PT and OT and has been out of bed ambulating. He continues to board in the emergency department pending placement as his will not take him back.
[2022-03-04] MEDS: CYCLOBENZAPRINE 10 MG TABLET PO PRN ×2 (16:23→21:15)
[2022-03-05] MEDS: CARBIDOPA/LEVODOPA 25 MG/100 MG TABLET PO SCH ×5 (05:42→22:27)
[2022-03-05] MEDS: ACETAMINOPHEN 500 MG TABLET PO PRN (05:56)
[2022-03-05] MEDS: clonazePAM 0.5 MG TABLET PO SCH ×2 (08:21→20:29)
[2022-03-05] MEDS: metFORMIN 500 MG TABLET PO SCH ×2 (08:21→17:30)
[2022-03-05] MEDS: PANTOPRAZOLE 40 MG TABLET PO SCH (08:21)
[2022-03-05] MEDS: SERTRALINE 50 MG TABLET PO SCH (08:22)
[2022-03-05] MEDS: QUEtiapine 25 MG TABLET PO SCH ×2 (08:24→20:30)
[2022-03-05] MEDS: COD LIVER OIL/ZINC OXIDE 113 GM TUBE TOP SCH ×2 (09:28→20:30)
[2022-03-05] MEDS: traZODone 50 MG TABLET PO SCH ×2 (09:28→20:30)
[2022-03-06] MEDS: ACETAMINOPHEN 500 MG TABLET PO PRN ×2 (01:14→13:01)
[2022-03-06] MEDS: CARBIDOPA/LEVODOPA 25 MG/100 MG TABLET PO SCH ×5 (05:36→21:29)
[2022-03-06] MEDS: CYCLOBENZAPRINE 10 MG TABLET PO PRN (06:33)
[2022-03-06] MEDS: PANTOPRAZOLE 40 MG TABLET PO SCH (06:33)
[2022-03-06] MEDS: SERTRALINE 50 MG TABLET PO SCH (08:09)
[2022-03-06] MEDS: metFORMIN 500 MG TABLET PO SCH ×2 (08:09→17:47)
[2022-03-06] MEDS: clonazePAM 0.5 MG TABLET PO SCH ×2 (08:09→21:28)
[2022-03-06] MEDS: QUEtiapine 25 MG TABLET PO SCH ×2 (08:10→21:29)
[2022-03-06] MEDS: COD LIVER OIL/ZINC OXIDE 113 GM TUBE TOP SCH ×2 (08:10→21:29)
[2022-03-06] MEDS: traZODone 50 MG TABLET PO SCH ×2 (08:11→21:28)
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
[2022-03-07] MEDS: ACETAMINOPHEN 500 MG TABLET PO PRN ×2 (02:28→17:32)
[2022-03-07] MEDS: CYCLOBENZAPRINE 10 MG TABLET PO PRN ×2 (02:29→17:32)
[2022-03-07] MEDS: PANTOPRAZOLE 40 MG TABLET PO SCH (06:31)
[2022-03-07] MEDS: CARBIDOPA/LEVODOPA 25 MG/100 MG TABLET PO SCH ×5 (06:31→21:47)
[2022-03-07] MEDS: clonazePAM 0.5 MG TABLET PO SCH ×2 (08:49→21:47)
[2022-03-07] MEDS: QUEtiapine 25 MG TABLET PO SCH ×2 (08:49→21:47)
[2022-03-07] MEDS: SERTRALINE 50 MG TABLET PO SCH (08:49)
[2022-03-07] MEDS: metFORMIN 500 MG TABLET PO SCH ×2 (08:51→17:10)
[2022-03-07] MEDS: COD LIVER OIL/ZINC OXIDE 113 GM TUBE TOP SCH ×2 (09:00→21:47)
--- NOTE | 2022-03-07 13:27 | ED Physician Documentation ---
ED Addendum - Addendum Addendum: 03/07/22 13:26 71-year-old male with agitated dementia is undomiciled and living here at the hospital in room #2212. I encountered the patient in his room. I awoke him from sleep he indicated that he was having no specific problems he did felt that he was cold last night. He is happy with the room he is in now. He is awaiting placement.
[2022-03-07] MEDS: traZODone 50 MG TABLET PO SCH (21:47)
[2022-03-08] MEDS: CARBIDOPA/LEVODOPA 25 MG/100 MG TABLET PO SCH ×5 (06:07→21:31)
[2022-03-08] MEDS: PANTOPRAZOLE 40 MG TABLET PO SCH (06:31)
[2022-03-08] MEDS: clonazePAM 0.5 MG TABLET PO SCH ×2 (08:38→21:05)
[2022-03-08] MEDS: SERTRALINE 50 MG TABLET PO SCH (08:38)
[2022-03-08] MEDS: QUEtiapine 25 MG TABLET PO SCH ×2 (08:38→21:05)
[2022-03-08] MEDS: metFORMIN 500 MG TABLET PO SCH ×2 (08:38→17:34)
[2022-03-08] MEDS: polyethylene glycoL 3350 17 GM PACKET PO PRN (10:11)
[2022-03-08] MEDS: ACETAMINOPHEN 500 MG TABLET PO PRN (10:12)
[2022-03-08] MEDS: COD LIVER OIL/ZINC OXIDE 113 GM TUBE TOP SCH ×2 (11:19→21:05)
[2022-03-08] MEDS: traZODone 50 MG TABLET PO SCH (21:06)
[2022-03-09] MEDS: CARBIDOPA/LEVODOPA 25 MG/100 MG TABLET PO SCH ×5 (06:38→21:25)
[2022-03-09] MEDS: PANTOPRAZOLE 40 MG TABLET PO SCH (06:38)
[2022-03-09] MEDS: ACETAMINOPHEN 500 MG TABLET PO PRN (08:33)
[2022-03-09] MEDS: clonazePAM 0.5 MG TABLET PO SCH ×2 (08:34→20:34)
[2022-03-09] MEDS: SERTRALINE 50 MG TABLET PO SCH (08:34)
[2022-03-09] MEDS: polyethylene glycoL 3350 17 GM PACKET PO PRN (08:34)
[2022-03-09] MEDS: QUEtiapine 25 MG TABLET PO SCH ×2 (08:34→20:34)
[2022-03-09] MEDS: metFORMIN 500 MG TABLET PO SCH ×2 (08:34→17:09)
[2022-03-09] MEDS: COD LIVER OIL/ZINC OXIDE 113 GM TUBE TOP SCH ×2 (08:35→20:34)
[2022-03-09] MEDS: CYCLOBENZAPRINE 10 MG TABLET PO PRN ×2 (10:35→19:29)
--- NOTE | 2022-03-09 11:01 | ED Physician Documentation ---
ED Addendum - Addendum Addendum: 03/09/22 11:00 Patient seen and examined at the bedside. Nursing staff indicate to me that the patient has not had a bowel movement. He does have as needed MiraLAX ordered though it was last administered on the and then yesterday on the . I have changed the MiraLAX order to reflect daily administration until he has adequate bowel movements. Objective vital signs were reviewed without acute worrisome abnormalities or fevers. Patient appeared comfortable in bed. No abdominal tenderness elicited. Assessment and plan: 71-year-old gentleman with a history of dementia. He was brought to the emergency department due to agitated and violent behaviors at home. His refuses to care for him at home any further. He has not been agitated or violent here while boarding on [facility] and no reports of behavioral outburst from nursing staff. Social work continues to work on appropriate alf facility placement.
[2022-03-09] MEDS: polyethylene glycoL 3350 17 GM PACKET PO SCH (14:14)
[2022-03-09] MEDS: traZODone 50 MG TABLET PO SCH (20:34)
[2022-03-10] MEDS: CARBIDOPA/LEVODOPA 25 MG/100 MG TABLET PO SCH ×5 (06:39→21:13)
[2022-03-10] MEDS: PANTOPRAZOLE 40 MG TABLET PO SCH (06:39)
[2022-03-10] MEDS: clonazePAM 0.5 MG TABLET PO SCH ×2 (08:12→21:13)
[2022-03-10] MEDS: metFORMIN 500 MG TABLET PO SCH ×2 (08:13→17:10)
[2022-03-10] MEDS: SERTRALINE 50 MG TABLET PO SCH (08:13)
[2022-03-10] MEDS: QUEtiapine 25 MG TABLET PO SCH ×2 (08:13→21:12)
[2022-03-10] MEDS: polyethylene glycoL 3350 17 GM PACKET PO SCH (08:14)
[2022-03-10] MEDS: COD LIVER OIL/ZINC OXIDE 113 GM TUBE TOP SCH ×2 (13:41→21:14)
[2022-03-10] MEDS: traZODone 50 MG TABLET PO SCH (21:13)
[2022-03-11] MEDS: ACETAMINOPHEN 500 MG TABLET PO PRN ×2 (02:16→18:21)
[2022-03-11] MEDS: CYCLOBENZAPRINE 10 MG TABLET PO PRN ×2 (02:16→19:37)
[2022-03-11] MEDS: CARBIDOPA/LEVODOPA 25 MG/100 MG TABLET PO SCH ×5 (06:02→21:00)
[2022-03-11] MEDS: PANTOPRAZOLE 40 MG TABLET PO SCH (06:02)
[2022-03-11] MEDS: polyethylene glycoL 3350 17 GM PACKET PO SCH (08:21)
[2022-03-11] MEDS: SERTRALINE 50 MG TABLET PO SCH (08:22)
[2022-03-11] MEDS: clonazePAM 0.5 MG TABLET PO SCH ×2 (08:22→20:38)
[2022-03-11] MEDS: QUEtiapine 25 MG TABLET PO SCH ×2 (08:22→20:33)
[2022-03-11] MEDS: metFORMIN 500 MG TABLET PO SCH ×2 (08:23→16:45)
[2022-03-11] MEDS: COD LIVER OIL/ZINC OXIDE 113 GM TUBE TOP SCH ×2 (10:17→20:39)
[2022-03-11] MEDS: traZODone 50 MG TABLET PO SCH (20:39)
--- NOTE | 2022-03-11 21:29 | ED Physician Documentation ---
ED Addendum - Addendum Addendum: 03/11/22 21:29 Talked briefly with Hospitalist. No noted new orders nor change in treatment needed. Patient is seeming comfortable in his room.
[2022-03-12] MEDS: ACETAMINOPHEN 500 MG TABLET PO PRN (02:06)
[2022-03-12] MEDS: PANTOPRAZOLE 40 MG TABLET PO SCH (06:26)
[2022-03-12] MEDS: CARBIDOPA/LEVODOPA 25 MG/100 MG TABLET PO SCH ×5 (07:01→22:02)
[2022-03-12] MEDS: polyethylene glycoL 3350 17 GM PACKET PO SCH (08:44)
[2022-03-12] MEDS: clonazePAM 0.5 MG TABLET PO SCH ×2 (08:44→20:59)
[2022-03-12] MEDS: metFORMIN 500 MG TABLET PO SCH ×2 (08:44→17:03)
[2022-03-12] MEDS: QUEtiapine 25 MG TABLET PO SCH ×2 (08:45→20:59)
[2022-03-12] MEDS: SERTRALINE 50 MG TABLET PO SCH (08:45)
[2022-03-12] MEDS: COD LIVER OIL/ZINC OXIDE 113 GM TUBE TOP SCH ×2 (13:40→21:00)
[2022-03-12] MEDS: CYCLOBENZAPRINE 10 MG TABLET PO PRN ×2 (14:40→20:59)
[2022-03-12] MEDS: traZODone 50 MG TABLET PO SCH (20:59)
[2022-03-13] MEDS: CARBIDOPA/LEVODOPA 25 MG/100 MG TABLET PO SCH ×5 (06:23→21:37)
[2022-03-13] MEDS: ACETAMINOPHEN 500 MG TABLET PO PRN ×2 (06:25→14:30)
[2022-03-13] MEDS: COD LIVER OIL/ZINC OXIDE 113 GM TUBE TOP SCH ×2 (09:04→21:38)
[2022-03-13] MEDS: metFORMIN 500 MG TABLET PO SCH ×2 (09:05→16:52)
[2022-03-13] MEDS: clonazePAM 0.5 MG TABLET PO SCH ×2 (09:05→21:38)
[2022-03-13] MEDS: polyethylene glycoL 3350 17 GM PACKET PO SCH (09:05)
[2022-03-13] MEDS: SERTRALINE 50 MG TABLET PO SCH (09:06)
[2022-03-13] MEDS: QUEtiapine 25 MG TABLET PO SCH ×2 (09:06→21:37)
[2022-03-13] MEDS: PANTOPRAZOLE 40 MG TABLET PO SCH (09:06)
--- NOTE | 2022-03-13 18:56 | ED Physician Documentation ---
ED Addendum - Addendum Addendum: 03/13/22 18:56 Patient is still awaiting placement. No acute issues. No acute issues overnight.
[2022-03-13] MEDS: traZODone 50 MG TABLET PO SCH (21:37)
[2022-03-13] MEDS: CYCLOBENZAPRINE 10 MG TABLET PO PRN (22:46)
[2022-03-14] MEDS: ACETAMINOPHEN 500 MG TABLET PO PRN ×2 (00:19→10:35)
[2022-03-14] MEDS: CYCLOBENZAPRINE 10 MG TABLET PO PRN (06:02)
[2022-03-14] MEDS: CARBIDOPA/LEVODOPA 25 MG/100 MG TABLET PO SCH ×5 (06:02→21:13)
[2022-03-14] MEDS: PANTOPRAZOLE 40 MG TABLET PO SCH (06:57)
[2022-03-14] MEDS: metFORMIN 500 MG TABLET PO SCH ×2 (08:04→17:49)
--- NOTE | 2022-03-14 08:16 | ED Physician Documentation ---
ED Addendum - Addendum Addendum: 03/14/22 08:15 Patient seen this morning. Was sitting up in chair. Denied any complaints or concerns. Was about to start his breakfast. Social work continues to work towards Placement.
[2022-03-14] MEDS: COD LIVER OIL/ZINC OXIDE 113 GM TUBE TOP SCH ×2 (09:00→21:13)
[2022-03-14] MEDS: clonazePAM 0.5 MG TABLET PO SCH ×2 (09:34→21:12)
[2022-03-14] MEDS: SERTRALINE 50 MG TABLET PO SCH (09:35)
[2022-03-14] MEDS: polyethylene glycoL 3350 17 GM PACKET PO SCH (09:35)
[2022-03-14] MEDS: QUEtiapine 25 MG TABLET PO SCH ×2 (09:35→21:13)
[2022-03-14] MEDS: traZODone 50 MG TABLET PO SCH (21:12)
[2022-03-15] MEDS: CYCLOBENZAPRINE 10 MG TABLET PO PRN ×2 (04:00→18:38)
[2022-03-15] MEDS: CARBIDOPA/LEVODOPA 25 MG/100 MG TABLET PO SCH ×5 (06:01→21:34)
[2022-03-15] MEDS: PANTOPRAZOLE 40 MG TABLET PO SCH (06:49)
[2022-03-15] MEDS: polyethylene glycoL 3350 17 GM PACKET PO SCH (08:33)
[2022-03-15] MEDS: ACETAMINOPHEN 500 MG TABLET PO PRN (08:33)
[2022-03-15] MEDS: SERTRALINE 50 MG TABLET PO SCH (08:34)
[2022-03-15] MEDS: clonazePAM 0.5 MG TABLET PO SCH ×2 (08:34→21:35)
[2022-03-15] MEDS: QUEtiapine 25 MG TABLET PO SCH ×2 (08:35→21:34)
[2022-03-15] MEDS: metFORMIN 500 MG TABLET PO SCH ×2 (08:35→16:59)
[2022-03-15] MEDS: COD LIVER OIL/ZINC OXIDE 113 GM TUBE TOP SCH ×2 (08:36→21:35)
[2022-03-15] MEDS: traZODone 50 MG TABLET PO SCH (21:35)
[2022-03-16] MEDS: CARBIDOPA/LEVODOPA 25 MG/100 MG TABLET PO SCH ×5 (06:27→21:44)
[2022-03-16] MEDS: PANTOPRAZOLE 40 MG TABLET PO SCH (06:27)
[2022-03-16] MEDS: polyethylene glycoL 3350 17 GM PACKET PO SCH (07:42)
[2022-03-16] MEDS: COD LIVER OIL/ZINC OXIDE 113 GM TUBE TOP SCH ×2 (07:42→21:45)
[2022-03-16] MEDS: clonazePAM 0.5 MG TABLET PO SCH ×2 (07:43→21:45)
[2022-03-16] MEDS: QUEtiapine 25 MG TABLET PO SCH ×2 (07:43→21:45)
[2022-03-16] MEDS: metFORMIN 500 MG TABLET PO SCH ×2 (07:44→17:45)
[2022-03-16] MEDS: SERTRALINE 50 MG TABLET PO SCH (07:44)
[2022-03-16] MEDS: ACETAMINOPHEN 500 MG TABLET PO PRN (07:44)
[2022-03-16] MEDS: traZODone 50 MG TABLET PO SCH (21:45)
[2022-03-17] MEDS: CARBIDOPA/LEVODOPA 25 MG/100 MG TABLET PO SCH ×5 (05:14→22:10)
[2022-03-17] MEDS: PANTOPRAZOLE 40 MG TABLET PO SCH (05:14)
[2022-03-17] MEDS: clonazePAM 0.5 MG TABLET PO SCH ×2 (09:16→21:17)
[2022-03-17] MEDS: SERTRALINE 50 MG TABLET PO SCH (09:16)
[2022-03-17] MEDS: ACETAMINOPHEN 500 MG TABLET PO PRN ×2 (09:16→16:51)
[2022-03-17] MEDS: metFORMIN 500 MG TABLET PO SCH ×2 (09:16→16:51)
[2022-03-17] MEDS: QUEtiapine 25 MG TABLET PO SCH ×2 (09:17→21:17)
[2022-03-17] MEDS: COD LIVER OIL/ZINC OXIDE 113 GM TUBE TOP SCH ×2 (09:17→21:17)
[2022-03-17] MEDS: polyethylene glycoL 3350 17 GM PACKET PO SCH (09:17)
[2022-03-17] MEDS: CYCLOBENZAPRINE 10 MG TABLET PO PRN (16:51)
--- NOTE | 2022-03-17 18:20 | ED Physician Documentation ---
ED Addendum - Addendum Addendum: 03/17/22 18:19 The patient is signed out to me at change of shift, continuing to pend long-term care placement. He continues to be followed by social work. He has had no issues today. He has been calm and cooperative and has taken all his medications and eating his food. He is signed out to the emergency physician at [facility] at change of shift, continuing to pend final disposition
[2022-03-17] MEDS: traZODone 50 MG TABLET PO SCH (21:17)
[2022-03-18] MEDS: PANTOPRAZOLE 40 MG TABLET PO SCH (06:36)
[2022-03-18] MEDS: CARBIDOPA/LEVODOPA 25 MG/100 MG TABLET PO SCH ×5 (06:36→22:02)
[2022-03-18] MEDS: COD LIVER OIL/ZINC OXIDE 113 GM TUBE TOP SCH ×2 (06:38→21:13)
[2022-03-18] MEDS: metFORMIN 500 MG TABLET PO SCH ×2 (08:30→17:02)
[2022-03-18] MEDS: polyethylene glycoL 3350 17 GM PACKET PO SCH (08:30)
[2022-03-18] MEDS: QUEtiapine 25 MG TABLET PO SCH ×2 (08:31→21:10)
[2022-03-18] MEDS: SERTRALINE 50 MG TABLET PO SCH (08:31)
[2022-03-18] MEDS: clonazePAM 0.5 MG TABLET PO SCH ×2 (08:31→21:10)
[2022-03-18] MEDS: CYCLOBENZAPRINE 10 MG TABLET PO PRN ×2 (14:52→22:02)
--- NOTE | 2022-03-18 17:29 | ED Physician Documentation ---
ED Addendum - Addendum Addendum: 03/18/22 17:28 The patient was signed out to me at change of shift, pending long-term care placement. He has been boarding in the emergency department for an extended period of time and social work has been working on placement for him. The patient has been stable today and has had no complaints. He has taken all his scheduled meds and has eaten meals. No new issues. The patient is signed out to the oncoming emergency physician, continuing to pend final disposition.
[2022-03-18] MEDS: traZODone 50 MG TABLET PO SCH (21:10)
[2022-03-19] MEDS: CARBIDOPA/LEVODOPA 25 MG/100 MG TABLET PO SCH ×5 (06:45→21:22)
[2022-03-19] MEDS: PANTOPRAZOLE 40 MG TABLET PO SCH (06:45)
[2022-03-19] MEDS: clonazePAM 0.5 MG TABLET PO SCH ×2 (08:01→21:18)
[2022-03-19] MEDS: metFORMIN 500 MG TABLET PO SCH ×2 (08:01→16:48)
[2022-03-19] MEDS: polyethylene glycoL 3350 17 GM PACKET PO SCH (08:01)
[2022-03-19] MEDS: QUEtiapine 25 MG TABLET PO SCH ×2 (08:02→21:18)
[2022-03-19] MEDS: COD LIVER OIL/ZINC OXIDE 113 GM TUBE TOP SCH ×2 (08:03→21:23)
[2022-03-19] MEDS: SERTRALINE 50 MG TABLET PO SCH (08:03)
--- NOTE | 2022-03-19 16:03 | ED Physician Documentation ---
ED Addendum - Addendum Addendum: 03/19/22 16:02 No reported problems on nursing notes. To continue current medications and diet. Social work notes state a adult family home director is coming tomorrow to evaluate this patient and another and it looks promising that they may be able to accept this patient there at their facility. We will see what the interview tomorrow is.
[2022-03-19] MEDS: traZODone 50 MG TABLET PO SCH (21:18)
[2022-03-20] MEDS: CARBIDOPA/LEVODOPA 25 MG/100 MG TABLET PO SCH ×5 (05:57→21:58)
[2022-03-20] MEDS: PANTOPRAZOLE 40 MG TABLET PO SCH (06:48)
[2022-03-20] MEDS: polyethylene glycoL 3350 17 GM PACKET PO SCH (08:46)
[2022-03-20] MEDS: QUEtiapine 25 MG TABLET PO SCH ×2 (08:47→21:58)
[2022-03-20] MEDS: metFORMIN 500 MG TABLET PO SCH ×2 (08:47→17:26)
[2022-03-20] MEDS: SERTRALINE 50 MG TABLET PO SCH (08:47)
[2022-03-20] MEDS: clonazePAM 0.5 MG TABLET PO SCH ×2 (08:48→21:57)
[2022-03-20] MEDS: COD LIVER OIL/ZINC OXIDE 113 GM TUBE TOP SCH ×2 (08:48→22:01)
[2022-03-20] MEDS: traZODone 50 MG TABLET PO SCH (21:58)
[2022-03-21] MEDS: PANTOPRAZOLE 40 MG TABLET PO SCH (06:43)
[2022-03-21] MEDS: CARBIDOPA/LEVODOPA 25 MG/100 MG TABLET PO SCH ×5 (06:43→21:46)
[2022-03-21] MEDS: metFORMIN 500 MG TABLET PO SCH ×2 (08:13→17:15)
[2022-03-21] MEDS: QUEtiapine 25 MG TABLET PO SCH ×2 (08:47→20:50)
[2022-03-21] MEDS: clonazePAM 0.5 MG TABLET PO SCH ×2 (08:48→20:50)
[2022-03-21] MEDS: SERTRALINE 50 MG TABLET PO SCH (08:48)
[2022-03-21] MEDS: polyethylene glycoL 3350 17 GM PACKET PO SCH (08:59)
[2022-03-21] MEDS: COD LIVER OIL/ZINC OXIDE 113 GM TUBE TOP SCH ×2 (08:59→20:53)
[2022-03-21] MEDS: ACETAMINOPHEN 500 MG TABLET PO PRN (09:37)
[2022-03-21] MEDS: traZODone 50 MG TABLET PO SCH (20:51)
[2022-03-22] MEDS: CYCLOBENZAPRINE 10 MG TABLET PO PRN (06:56)
[2022-03-22] MEDS: CARBIDOPA/LEVODOPA 25 MG/100 MG TABLET PO SCH ×5 (06:56→21:28)
[2022-03-22] MEDS: PANTOPRAZOLE 40 MG TABLET PO SCH (06:56)
[2022-03-22] MEDS: ACETAMINOPHEN 500 MG TABLET PO PRN ×2 (06:56→17:01)
[2022-03-22] MEDS: metFORMIN 500 MG TABLET PO SCH ×2 (07:53→17:01)
[2022-03-22] MEDS: SERTRALINE 50 MG TABLET PO SCH (07:55)
[2022-03-22] MEDS: QUEtiapine 25 MG TABLET PO SCH ×2 (07:55→21:28)
[2022-03-22] MEDS: polyethylene glycoL 3350 17 GM PACKET PO SCH (07:55)
[2022-03-22] MEDS: COD LIVER OIL/ZINC OXIDE 113 GM TUBE TOP SCH ×2 (07:56→21:30)
[2022-03-22] MEDS: clonazePAM 0.5 MG TABLET PO SCH ×2 (10:02→21:28)
--- NOTE | 2022-03-22 17:07 | ED Physician Documentation ---
ED Addendum - Addendum Addendum: Patient remains boarding on the medical floor awaiting placement or safe disposition. No issues per floor nursing staff. Social work continues to work on his case.
[2022-03-22] MEDS: traZODone 50 MG TABLET PO SCH (21:28)
[2022-03-23] MEDS: CARBIDOPA/LEVODOPA 25 MG/100 MG TABLET PO SCH ×5 (06:15→21:56)
[2022-03-23] MEDS: PANTOPRAZOLE 40 MG TABLET PO SCH (06:16)
[2022-03-23] MEDS: metFORMIN 500 MG TABLET PO SCH ×2 (09:17→17:17)
[2022-03-23] MEDS: QUEtiapine 25 MG TABLET PO SCH ×2 (09:18→21:57)
[2022-03-23] MEDS: clonazePAM 0.5 MG TABLET PO SCH ×2 (09:18→21:57)
[2022-03-23] MEDS: ACETAMINOPHEN 500 MG TABLET PO PRN (09:18)
[2022-03-23] MEDS: COD LIVER OIL/ZINC OXIDE 113 GM TUBE TOP SCH ×2 (09:19→21:57)
[2022-03-23] MEDS: polyethylene glycoL 3350 17 GM PACKET PO SCH (09:20)
[2022-03-23] MEDS: SERTRALINE 50 MG TABLET PO SCH (09:21)
[2022-03-23] MEDS: CYCLOBENZAPRINE 10 MG TABLET PO PRN (18:25)
[2022-03-23] MEDS: traZODone 50 MG TABLET PO SCH (21:56)
[2022-03-24] MEDS: PANTOPRAZOLE 40 MG TABLET PO SCH (06:10)
[2022-03-24] MEDS: CARBIDOPA/LEVODOPA 25 MG/100 MG TABLET PO SCH ×5 (06:10→22:00)
[2022-03-24] MEDS: clonazePAM 0.5 MG TABLET PO SCH ×2 (08:04→22:00)
[2022-03-24] MEDS: polyethylene glycoL 3350 17 GM PACKET PO SCH (08:04)
[2022-03-24] MEDS: QUEtiapine 25 MG TABLET PO SCH ×2 (08:05→22:01)
[2022-03-24] MEDS: metFORMIN 500 MG TABLET PO SCH ×2 (08:05→16:56)
[2022-03-24] MEDS: SERTRALINE 50 MG TABLET PO SCH (08:05)
[2022-03-24] MEDS: COD LIVER OIL/ZINC OXIDE 113 GM TUBE TOP SCH ×2 (08:06→22:01)
[2022-03-24] MEDS: traZODone 50 MG TABLET PO SCH (22:00)
[2022-03-25] MEDS: PANTOPRAZOLE 40 MG TABLET PO SCH (06:28)
[2022-03-25] MEDS: CARBIDOPA/LEVODOPA 25 MG/100 MG TABLET PO SCH ×5 (06:28→21:14)
[2022-03-25] MEDS: metFORMIN 500 MG TABLET PO SCH ×2 (08:10→16:59)
[2022-03-25] MEDS: polyethylene glycoL 3350 17 GM PACKET PO SCH (08:11)
[2022-03-25] MEDS: clonazePAM 0.5 MG TABLET PO SCH ×2 (09:30→21:15)
[2022-03-25] MEDS: COD LIVER OIL/ZINC OXIDE 113 GM TUBE TOP SCH ×2 (09:30→21:15)
[2022-03-25] MEDS: SERTRALINE 50 MG TABLET PO SCH (09:30)
[2022-03-25] MEDS: QUEtiapine 25 MG TABLET PO SCH ×2 (09:30→21:15)
[2022-03-25] MEDS: ACETAMINOPHEN 500 MG TABLET PO PRN (12:14)
[2022-03-25] MEDS: traZODone 50 MG TABLET PO SCH (21:15)
[2022-03-26] MEDS: CARBIDOPA/LEVODOPA 25 MG/100 MG TABLET PO SCH ×5 (05:28→21:38)
[2022-03-26] MEDS: PANTOPRAZOLE 40 MG TABLET PO SCH (05:28)
[2022-03-26] MEDS: polyethylene glycoL 3350 17 GM PACKET PO SCH (08:43)
[2022-03-26] MEDS: QUEtiapine 25 MG TABLET PO SCH ×2 (08:43→21:38)
[2022-03-26] MEDS: SERTRALINE 50 MG TABLET PO SCH (08:43)
[2022-03-26] MEDS: metFORMIN 500 MG TABLET PO SCH ×2 (08:43→17:08)
[2022-03-26] MEDS: clonazePAM 0.5 MG TABLET PO SCH ×2 (08:43→21:38)
[2022-03-26] MEDS: COD LIVER OIL/ZINC OXIDE 113 GM TUBE TOP SCH ×2 (08:44→21:38)
[2022-03-26] MEDS: CYCLOBENZAPRINE 10 MG TABLET PO PRN (17:09)
--- NOTE | 2022-03-26 19:16 | ED Physician Documentation ---
ED Addendum - Addendum Addendum: 03/26/22 19:15 Patient seen at the bedside. He has no acute complaints. Vital signs reviewed over the last 24 hours with no worrisome abnormalities identified. He continues to board pending social work for appropriate placement for his dementia. Impression: dementia
[2022-03-26] MEDS: traZODone 50 MG TABLET PO SCH (21:38)
[2022-03-27] MEDS: CARBIDOPA/LEVODOPA 25 MG/100 MG TABLET PO SCH ×5 (07:54→21:46)
[2022-03-27] MEDS: PANTOPRAZOLE 40 MG TABLET PO SCH (07:55)
[2022-03-27] MEDS: clonazePAM 0.5 MG TABLET PO SCH ×2 (10:16→21:45)
[2022-03-27] MEDS: QUEtiapine 25 MG TABLET PO SCH ×2 (10:17→21:46)
[2022-03-27] MEDS: SERTRALINE 50 MG TABLET PO SCH (10:17)
[2022-03-27] MEDS: metFORMIN 500 MG TABLET PO SCH ×2 (10:17→17:17)
[2022-03-27] MEDS: polyethylene glycoL 3350 17 GM PACKET PO SCH (10:17)
[2022-03-27] MEDS: COD LIVER OIL/ZINC OXIDE 113 GM TUBE TOP SCH ×2 (10:18→21:46)
[2022-03-27] MEDS: traZODone 50 MG TABLET PO SCH (21:45)
[2022-03-28] MEDS: CYCLOBENZAPRINE 10 MG TABLET PO PRN (06:23)
[2022-03-28] MEDS: CARBIDOPA/LEVODOPA 25 MG/100 MG TABLET PO SCH ×5 (06:24→21:53)
[2022-03-28] MEDS: PANTOPRAZOLE 40 MG TABLET PO SCH (06:56)
[2022-03-28] MEDS: COD LIVER OIL/ZINC OXIDE 113 GM TUBE TOP SCH ×2 (08:37→21:26)
[2022-03-28] MEDS: clonazePAM 0.5 MG TABLET PO SCH ×2 (08:37→21:25)
[2022-03-28] MEDS: polyethylene glycoL 3350 17 GM PACKET PO SCH (08:37)
[2022-03-28] MEDS: metFORMIN 500 MG TABLET PO SCH ×2 (08:38→17:01)
[2022-03-28] MEDS: QUEtiapine 25 MG TABLET PO SCH ×2 (08:38→21:24)
[2022-03-28] MEDS: SERTRALINE 50 MG TABLET PO SCH (08:38)
[2022-03-28] MEDS: traZODone 50 MG TABLET PO SCH (21:25)
[2022-03-29] MEDS: CYCLOBENZAPRINE 10 MG TABLET PO PRN (03:33)
[2022-03-29] MEDS: CARBIDOPA/LEVODOPA 25 MG/100 MG TABLET PO SCH ×5 (06:28→21:48)
[2022-03-29] MEDS: PANTOPRAZOLE 40 MG TABLET PO SCH (06:30)
--- NOTE | 2022-03-29 08:34 | XRAY Report ---
PROCEDURE: Chest 2 View X-Ray INDICATIONS: hypoxia, asymptomatic TECHNIQUE: 2 views of the chest were acquired. COMPARISON: None. FINDINGS: Surgical changes and devices: None. Lungs and pleura: No pleural effusions or pneumothorax. Linear density along the minor fissure is sl ightly more prominent than on the previous study, consistent with a small amount of fluid in the zari r fissure or adjacent scarring or atelectasis. Mediastinum: Mediastinal contours are normal. Heart size is normal. Bones and chest wall: No suspicious bony abnormalities. Soft tissues appear unremarkable. IMPRESSION: No definite infiltrate. Linear atelectasis/scarring versus small amount of minor fissure fluid noted. Findings above correspond with preliminary findings by [facility]. Reviewed by: Dorian Munoz on 03/29/2022 8:32 AM [facility] Approved by: Dorian Munoz on 03/29/2022 8:32 AM [facility] Station ID: [id number]
[2022-03-29] MEDS: COD LIVER OIL/ZINC OXIDE 113 GM TUBE TOP SCH ×2 (09:38→21:48)
[2022-03-29] MEDS: metFORMIN 500 MG TABLET PO SCH ×2 (09:39→17:47)
[2022-03-29] MEDS: clonazePAM 0.5 MG TABLET PO SCH ×2 (09:39→21:48)
[2022-03-29] MEDS: SERTRALINE 50 MG TABLET PO SCH (09:40)
[2022-03-29] MEDS: polyethylene glycoL 3350 17 GM PACKET PO SCH (09:40)
[2022-03-29] MEDS: QUEtiapine 25 MG TABLET PO SCH ×2 (09:40→21:48)
[2022-03-29] MEDS ORDERED: ALBUTEROL NEB 2.5 MG/3 ML INH STA (11:42)
--- NOTE | 2022-03-29 11:45 | ED Physician Documentation ---
ED Addendum - Addendum Addendum: 03/29/22 11:43 I have personally evaluated the patient at the bedside. He is laying in bed. He is alert. He is denying any chest pain or shortness of air. Nursing staff has notified us that he has downtrending oxygen sats over the last few days. Typically about 90 to 92% on room air. Nursing staff feel that he is increasingly tireed, though pt denies this. Otherwise his vital signs have been without fever, hypotension or tachycardia. He has been eating his meals well. A chest x-ray was obtained earlier this a.m. and it does show some atelectasis. No definite infiltrates were noted. He is generally clear to auscultation. I did note some very minimally decreased breath sounds on the left lower lobe but nothing worrisome otherwise. I have ordered an albuterol nebulizer. I am hoping that some pulmonary toileting can help with his atelectasis. I suspect that he simply not getting out of bed enough and I have encouraged nursing staff to get him out of bed 4-6 times a day. Incentive spirometry ordered TID peviously. I did obtain CBC and electrolytes. Per my interpretation of the labs there are no worrisome findings. His BUN and creatinine have stabilized. There is no leukocytosis. At this time he will continue to board. My hope is that with 3 times daily i ncentive spirometry, increased episodes of being out of bed that his downtrending oxygen sats will improve and we will continue to follow.
[2022-03-29 12:00] LABS: BASOPHILS % (AUTO) 0.4 %; EOSINOPHILS # (AUTO) 0.4 10^3/uL (0.0-0.7); EOSINOPHILS % (AUTO) 5.4 %; HCT - HEMATOCRIT 40.6 % (42.0-52.0); HGB - HEMOGLOBIN 13.1 g/dL (14.0-18.0); LYMPHOCYTES # (AUTO) 0.8 10^3/uL (1.5-3.5); LYMPHOCYTES % (AUTO) 10.3 %; MEAN CORPUSCULAR HEMOGLOBIN 31.6 pg (27.0-31.0); MEAN CORPUSCULAR HGB CONC 32.3 g/dL (32.0-36.0); MEAN CORPUSCULAR VOLUME 98.1 fL (80.0-94.0); MEAN PLATELET VOLUME 9.1 fL (7.4-11.4); MONOCYTES # (AUTO) 0.6 10^3/uL (0.0-1.0); MONOCYTES % (AUTO) 6.9 %; NEUTROPHILS # (AUTO) 6.2 10^3/uL (1.5-6.6); NEUTROPHILS % (AUTO) 75.8 %; PLT - PLATELET COUNT 250 10^3/uL (130-450); RED BLOOD COUNT 4.14 10^6/uL (4.70-6.10); RED CELL DISTRIBUTION WIDTH 12.9 % (12.0-15.0); WHITE BLOOD COUNT 8.2 x10^3/uL (4.8-10.8)
[2022-03-29 12:21] LABS: ALBUMIN 3.5 g/dL (3.2-5.5); ALBUMIN/GLOBULIN RATIO 1.1 (1.0-2.2); ALKALINE PHOSPHATASE 85 IU/L (42-121); ALT ALANINE AMINOTRANSFERASE < 10 IU/L (10-60); AST ASPARTATE AMINOTRANSFERASE 11 IU/L (10-42); BILIRUBIN,TOTAL 0.6 mg/dL (0.2-1.0); BUN - BLOOD UREA NITROGEN 22 mg/dL (6-20); CALCIUM 9.8 mg/dL (8.5-10.3); CARBON DIOXIDE - CO2 25 mmol/L (21-32); CHLORIDE 100 mmol/L (101-111); CREATININE 0.9 mg/dL (0.6-1.2); GFR - MDRD 83 (>89); GLUCOSE 131 mg/dL (70-100); LIPASE 34 U/L (22-51); POTASSIUM 4.2 mmol/L (3.5-5.0); SODIUM 140 mmol/L (135-145); TOTAL PROTEIN 6.8 g/dL (6.7-8.2)
[2022-03-29] MEDS: traZODone 50 MG TABLET PO SCH (21:48)
[2022-03-30] MEDS: CARBIDOPA/LEVODOPA 25 MG/100 MG TABLET PO SCH ×5 (06:43→21:59)
[2022-03-30] MEDS: PANTOPRAZOLE 40 MG TABLET PO SCH (06:43)
--- NOTE | 2022-03-30 07:41 | ED Physician Documentation ---
ED Addendum - Addendum Addendum: 03/30/22 07:40 Patient seen at the bedside this morning. He reports no complaints. He denies shortness of breath and his lung sounds are clear. He reports being in a chair most of yesterday and ambulating in the hallway making several loops. He reports eating all of his meals. Social work continues to work on placement For a safe disposition.
[2022-03-30] MEDS: COD LIVER OIL/ZINC OXIDE 113 GM TUBE TOP SCH (08:16)
[2022-03-30] MEDS: QUEtiapine 25 MG TABLET PO SCH ×2 (08:17→22:00)
[2022-03-30] MEDS: SERTRALINE 50 MG TABLET PO SCH (08:17)
[2022-03-30] MEDS: clonazePAM 0.5 MG TABLET PO SCH ×2 (08:17→21:59)
[2022-03-30] MEDS: metFORMIN 500 MG TABLET PO SCH ×2 (08:20→17:15)
[2022-03-30] MEDS: polyethylene glycoL 3350 17 GM PACKET PO SCH (08:20)
[2022-03-30] MEDS: traZODone 50 MG TABLET PO SCH (21:59)
[2022-03-31] MEDS: PANTOPRAZOLE 40 MG TABLET PO SCH ×2 (06:25→06:26)
[2022-03-31] MEDS: CARBIDOPA/LEVODOPA 25 MG/100 MG TABLET PO SCH ×5 (06:26→21:30)
[2022-03-31] MEDS: COD LIVER OIL/ZINC OXIDE 113 GM TUBE TOP SCH ×4 (07:46→21:30)
[2022-03-31] MEDS: metFORMIN 500 MG TABLET PO SCH ×2 (08:34→17:03)
[2022-03-31] MEDS: polyethylene glycoL 3350 17 GM PACKET PO SCH (08:34)
[2022-03-31] MEDS: SERTRALINE 50 MG TABLET PO SCH (08:34)
[2022-03-31] MEDS: QUEtiapine 25 MG TABLET PO SCH ×2 (08:34→21:29)
[2022-03-31] MEDS: clonazePAM 0.5 MG TABLET PO SCH ×2 (08:34→21:30)
--- NOTE | 2022-03-31 13:59 | ED Physician Documentation ---
ED Addendum - Addendum Addendum: No events overnight. Patient remains in emergency department awaiting placement. [facility] may be interested and social work continues to work on Placement for safe disposition.
[2022-03-31] MEDS: traZODone 50 MG TABLET PO SCH (21:30)
[2022-04-01] MEDS: ACETAMINOPHEN 500 MG TABLET PO PRN (00:08)
[2022-04-01] MEDS: CYCLOBENZAPRINE 10 MG TABLET PO PRN (02:21)
[2022-04-01] MEDS: metFORMIN 500 MG TABLET PO SCH ×2 (08:19→17:26)
[2022-04-01] MEDS: CARBIDOPA/LEVODOPA 25 MG/100 MG TABLET PO SCH ×5 (08:24→21:10)
[2022-04-01] MEDS: clonazePAM 0.5 MG TABLET PO SCH ×2 (08:24→21:11)
[2022-04-01] MEDS: SERTRALINE 50 MG TABLET PO SCH (08:29)
[2022-04-01] MEDS: QUEtiapine 25 MG TABLET PO SCH ×2 (08:29→21:10)
[2022-04-01] MEDS: polyethylene glycoL 3350 17 GM PACKET PO SCH (08:29)
[2022-04-01] MEDS: COD LIVER OIL/ZINC OXIDE 113 GM TUBE TOP SCH ×2 (08:29→21:12)
--- NOTE | 2022-04-01 16:05 | ED Physician Documentation ---
ED Addendum - Addendum Addendum: 04/01/22 16:04 Silvestre continues to await placement and it does appear an end his in sight. He had some pain last night requiring some Tylenol today denies any pain. He denies any specific needs.
[2022-04-01] MEDS: traZODone 50 MG TABLET PO SCH (21:10)
[2022-04-02] MEDS: CARBIDOPA/LEVODOPA 25 MG/100 MG TABLET PO SCH ×5 (05:27→21:42)
[2022-04-02] MEDS: PANTOPRAZOLE 40 MG TABLET PO SCH (06:10)
[2022-04-02] MEDS: SERTRALINE 50 MG TABLET PO SCH (08:19)
[2022-04-02] MEDS: metFORMIN 500 MG TABLET PO SCH ×2 (08:19→17:24)
[2022-04-02] MEDS: QUEtiapine 25 MG TABLET PO SCH ×2 (08:19→21:42)
[2022-04-02] MEDS: polyethylene glycoL 3350 17 GM PACKET PO SCH (08:20)
[2022-04-02] MEDS: clonazePAM 0.5 MG TABLET PO SCH ×2 (09:30→21:42)
[2022-04-02] MEDS: COD LIVER OIL/ZINC OXIDE 113 GM TUBE TOP SCH ×2 (09:40→21:43)
[2022-04-02] MEDS: ACETAMINOPHEN 500 MG TABLET PO PRN (18:21)
[2022-04-02] MEDS: CYCLOBENZAPRINE 10 MG TABLET PO PRN (18:22)
--- NOTE | 2022-04-02 18:44 | ED Physician Documentation ---
ED Addendum - Addendum Addendum: 04/02/22 18:43 Today via Rajinder is more animated and indicates that he felt a bit blah the last day but today he has walked the halls extensively. He awaits placement.
[2022-04-02] MEDS: traZODone 50 MG TABLET PO SCH (21:42)
[2022-04-03] MEDS: CARBIDOPA/LEVODOPA 25 MG/100 MG TABLET PO SCH ×5 (06:04→22:09)
[2022-04-03] MEDS: PANTOPRAZOLE 40 MG TABLET PO SCH (06:04)
[2022-04-03] MEDS: ACETAMINOPHEN 500 MG TABLET PO PRN (06:04)
[2022-04-03] MEDS: clonazePAM 0.5 MG TABLET PO SCH ×2 (09:22→21:14)
[2022-04-03] MEDS: SERTRALINE 50 MG TABLET PO SCH (09:22)
[2022-04-03] MEDS: polyethylene glycoL 3350 17 GM PACKET PO SCH (09:22)
[2022-04-03] MEDS: QUEtiapine 25 MG TABLET PO SCH ×2 (09:22→21:14)
[2022-04-03] MEDS: metFORMIN 500 MG TABLET PO SCH ×2 (09:22→17:39)
[2022-04-03] MEDS: COD LIVER OIL/ZINC OXIDE 113 GM TUBE TOP SCH ×2 (10:48→22:09)
[2022-04-03] MEDS: CYCLOBENZAPRINE 10 MG TABLET PO PRN (11:13)
[2022-04-03] MEDS: traZODone 50 MG TABLET PO SCH (21:14)
[2022-04-04] MEDS: CYCLOBENZAPRINE 10 MG TABLET PO PRN ×2 (02:47→14:15)
[2022-04-04] MEDS: CARBIDOPA/LEVODOPA 25 MG/100 MG TABLET PO SCH ×5 (06:44→21:52)
[2022-04-04] MEDS: PANTOPRAZOLE 40 MG TABLET PO SCH (06:44)
[2022-04-04] MEDS: metFORMIN 500 MG TABLET PO SCH ×2 (08:31→17:20)
[2022-04-04] MEDS: QUEtiapine 25 MG TABLET PO SCH ×2 (08:50→21:05)
[2022-04-04] MEDS: polyethylene glycoL 3350 17 GM PACKET PO SCH (08:51)
[2022-04-04] MEDS: SERTRALINE 50 MG TABLET PO SCH (08:51)
[2022-04-04] MEDS: clonazePAM 0.5 MG TABLET PO SCH ×2 (08:51→21:06)
[2022-04-04] MEDS: COD LIVER OIL/ZINC OXIDE 113 GM TUBE TOP SCH ×2 (08:55→21:06)
[2022-04-04] MEDS: ACETAMINOPHEN 500 MG TABLET PO PRN (09:25)
--- NOTE | 2022-04-04 16:49 | ED Physician Documentation ---
ED Addendum - Addendum Addendum: 04/04/22 16:44 Patient has been accepted to [facility] [place]. Plan will be to discharge the patient on Monday or . Prescriptions were sent today to [facility]. Departure - Departure Clinical Impression: Dementia with parkinsonism Condition: Stable Prescriptions: Cod Liver Oil/Zinc Oxide [Desitin] 5 gm TOP BID #1 each traZODone [Desyrel] 50 mg PO QPM #30 tab Cyclobenzaprine [Flexeril] 10 mg PO TID PRN #30 tab PRN Reason: Spasms metFORMIN [Glucophage] 500 mg PO BIDWM #60 tab clonazePAM [KlonoPIN] 0.25 mg PO BID #30 tab polyethylene glycoL 3350 [Miralax] 17 gm PO DAILY #30 packet Pantoprazole [Protonix] 40 mg PO QDAC #30 tab QUEtiapine [SEROquel] 50 mg PO QDBREAKFAST #60 tab QUEtiapine [SEROquel] 50 mg PO QPM #60 tab Carbidopa/Levodopa 25/100 [Sinemet 25 mg/100 mg] 2 tab PO 5XD #300 tab Sertraline [Zoloft] 50 mg PO DAILY #30 tab Comments: 02/10/22 - CT Abd/Pelvis: The main pancreatic duct is dilated, without an obstructing lesion identified by CT. This is a nonspecific finding, could be related to benign or malignant obstruction. Gastroenterology consultation may be helpful to direct further management, could consider endoscopic evaluation. If further imaging is desired, could consider MRI or CT of the pancreas.
[2022-04-04] MEDS: traZODone 50 MG TABLET PO SCH (21:05)
[2022-04-05] MEDS: PANTOPRAZOLE 40 MG TABLET PO SCH (06:55)
[2022-04-05] MEDS: CARBIDOPA/LEVODOPA 25 MG/100 MG TABLET PO SCH ×5 (06:55→21:36)
[2022-04-05] MEDS: QUEtiapine 25 MG TABLET PO SCH ×2 (08:21→21:35)
[2022-04-05] MEDS: polyethylene glycoL 3350 17 GM PACKET PO SCH (08:21)
[2022-04-05] MEDS: metFORMIN 500 MG TABLET PO SCH ×2 (08:21→17:18)
[2022-04-05] MEDS: SERTRALINE 50 MG TABLET PO SCH (08:21)
[2022-04-05] MEDS: clonazePAM 0.5 MG TABLET PO SCH ×2 (08:43→21:36)
[2022-04-05] MEDS: ACETAMINOPHEN 500 MG TABLET PO PRN (10:21)
[2022-04-05] MEDS: COD LIVER OIL/ZINC OXIDE 113 GM TUBE TOP SCH ×2 (10:23→21:37)
[2022-04-05] MEDS: CYCLOBENZAPRINE 10 MG TABLET PO PRN (13:35)
[2022-04-05] MEDS: traZODone 50 MG TABLET PO SCH (21:35)
[2022-04-06] MEDS: CARBIDOPA/LEVODOPA 25 MG/100 MG TABLET PO SCH ×5 (06:19→21:31)
[2022-04-06] MEDS: PANTOPRAZOLE 40 MG TABLET PO SCH (06:20)
[2022-04-06] MEDS: polyethylene glycoL 3350 17 GM PACKET PO SCH (07:45)
[2022-04-06] MEDS: QUEtiapine 25 MG TABLET PO SCH ×2 (07:45→21:31)
[2022-04-06] MEDS: ACETAMINOPHEN 500 MG TABLET PO PRN (07:46)
[2022-04-06] MEDS: metFORMIN 500 MG TABLET PO SCH ×2 (07:46→17:35)
[2022-04-06] MEDS: SERTRALINE 50 MG TABLET PO SCH (07:46)
[2022-04-06] MEDS: COD LIVER OIL/ZINC OXIDE 113 GM TUBE TOP SCH ×2 (07:47→21:32)
[2022-04-06] MEDS: clonazePAM 0.5 MG TABLET PO SCH ×2 (09:45→21:32)
[2022-04-06] MEDS: traZODone 50 MG TABLET PO SCH (21:32)
[2022-04-07] MEDS: PANTOPRAZOLE 40 MG TABLET PO SCH (06:15)
[2022-04-07] MEDS: CARBIDOPA/LEVODOPA 25 MG/100 MG TABLET PO SCH ×2 (06:15→10:16)
[2022-04-07] MEDS: polyethylene glycoL 3350 17 GM PACKET PO SCH (08:48)
[2022-04-07] MEDS: clonazePAM 0.5 MG TABLET PO SCH (08:49)
[2022-04-07] MEDS: SERTRALINE 50 MG TABLET PO SCH (08:49)
[2022-04-07] MEDS: metFORMIN 500 MG TABLET PO SCH (08:49)
[2022-04-07] MEDS: QUEtiapine 25 MG TABLET PO SCH (08:50)
[2022-04-07] MEDS: COD LIVER OIL/ZINC OXIDE 113 GM TUBE TOP SCH (08:51)
[2022-04-07 11:46] VITALS: BP 124/64
== END 2022-04-07 12:15 | disposition home or self-care (01) ==
LOC: EDUNIT# → ED 16:37 → MS2 03-01 05:12 → ED 04-07 12:15
DX: G20 Parkinson's disease (principal); F02.80 Dementia in other diseases classified elsewhere, unspecified severity, without behavioral disturbance, psychotic disturbance, mood disturbance, and anxiety; F03.911 Unspecified dementia, unspecified severity, with agitation; R52 Pain, unspecified; N50.819 Testicular pain, unspecified; R07.81 Pleurodynia; R25.2 Cramp and spasm; I95.9 Hypotension, unspecified; J98.11 Atelectasis; Z59.02 Unsheltered homelessness; Z75.1 Person awaiting admission to adequate facility elsewhere; Z20.822 Contact with and (suspected) exposure to COVID-19; F41.9 Anxiety disorder, unspecified; F02.811 Dementia in other diseases classified elsewhere, unspecified severity, with agitation
CPT/HCPCS: 36415; 70450; 71045; 71046; 73030; 74177; 80048; 80053; 80306; 80307; 80320; 80329; 81003; 83605; 83690; 83880; 84443; 84484; 85025; 87040; 87633; 87635; 90834; 93005; 94640; 96361; 96372; 96374; 99285; A9270; G0427; J1200; J2060; Q3014; Q9967; 81001; 87086

== ENCOUNTER → 2022-02-03 | Outpatient (CLI) | payer OTHER | END | disposition critical access hospital (66) | LOC: EMS 16:01 | DX: Z04.6 Encounter for general psychiatric examination, requested by authority (principal); F03.911 Unspecified dementia, unspecified severity, with agitation; Z59.89 Other problems related to housing and economic circumstances; Z63.8 Other specified problems related to primary support group | CPT/HCPCS: A0425; A0429 ==